=== PATIENT | female | born 1975 | race Caucasian/White ===

== ENCOUNTER 2020-01-23 12:06 | Outpatient (CLI) | payer OTHER, SELFPAY ==
--- NOTE | ~2020-01-23 | MMUS_ITS ---
EXAMINATION: MM diagnostic yissel BI w rohan, US breast RT complete HISTORY: Palpable right breast and axillary lumps. Breast pain. TECHNIQUE: Additional 3-D tomosynthesis images of were performed and synthetic 2-D images were genera jose luis. CAD analysis was submitted and interpreted. High resolution right breast ultrasound was salomee d. COMPARISON: None FINDINGS: MAMMOGRAPHIC FINDINGS: Breast composed of scattered areas of fibroglandular density. There are no suspicious masses, calcifi cations or architectural distortion in either breast to suggest malignancy. ULTRASOUND: Normal heterogeneous echotexture without focal solid or cystic mass. No axillary masses. IMPRESSION: 1. No mammographic or sonographic evidence for malignancy. 2. Routine yearly screening mammogram and regular clinical breast examination are recommended. BI-RADS Category 1: Negative Reviewed, dictated and finalized at location A. /REC/DOC CONTROL IMPRESSION: 1. No mammographic or sonographic evidence for malignancy. 2. Routine yearly screening mammogram and regular clinical breast examination a re recommended. BI-RADS Category 1: Negative
== END 2020-01-23 12:07 | disposition home or self-care (01) ==
PROVIDERS: Visit Provider Emergency Medicine
DX: R92.8 Other abnormal and inconclusive findings on diagnostic imaging of breast (principal)
CPT/HCPCS: 76641; 77062; 77066; G0279

== ENCOUNTER 2020-07-18 22:01 | Emergency (ER) | payer OTHER, SELFPAY ==
--- NOTE | ~2020-07-18 | CT_ITS ---
EXAMINATION: CT brain wo con DATE: 07/18/2020 22:47 INDICATION: Headache TECHNIQUE: Computed tomography (CT) of the head was performed without intravenous contrast. Sagittal and coronal reconstructions were performed. The mA was adjusted according to patient size. Iterative reconstruction technique was employed. The dose-length product was 605.33 mGy-cm. COMPARISON: head CT dated 02/04/19 FINDINGS: No acute intracranial hemorrhage, acute infarction or abnormal extra axial fluid collection. Ventricl es are normal and symmetric. No mass/mass effect. Chronic small right mastoid effusion. The orbits an d left mastoid air cells are normal. Mild mucosal thickening in the bilateral ethmoid sinuses where t here are changes of prior bilateral partial ethmoidectomies. IMPRESSION: 1. Normal brain. No acute intracranial process. Reviewed, dictated and finalized at location A.
[2020-07-18 21:58] VITALS: BP 142/79; PULSE 86; RESP 18; TEMP 36.9; O2SAT 98
--- NOTE | 2020-07-18 22:22 | ECG_ITS ---
Measurements Intervals [place] Rate: 69 P: 59 NV: 139 QRS: 24 QRSD: 82 T: 13 QT: 451 QTc: 483 Interpretive Statements SINUS RHYTHM WITH SINUS ARRHYTHMIA BASELINE ARTIFACT- I, II, III, AVR, AVL, AVF NORMAL ECG Electronically Signed On 07-19-2020 7:02:13 CDT by Haider Jones D.O.
--- NOTE | 2020-07-18 22:23 | ED.GENADULT ---
HPI - General Adult General Chief complaint: Headache Stated complaint: feeling weird Time Seen by Provider: 07/18/20 22:13 Source: RN notes reviewed History of Present Illness HPI narrative: Patient presents emergency department from home via EMS for feeling funny. Patient states that since she woke this morning she is felt funny . She states she is had a hard time focusing. She states she has a history of migraines and has had a headache off and on all day today as well. She notes mild nausea associated with the symptoms. She states she did take Tylenol earlier with no relief. She denies any fevers or chills chest pain shortness of breath vomiting diarrhea or any other symptoms. States that she does have some numbness around her lips but denies any numbness or weakness of the extremities states numbness of the lips is bilateral. States she does have a history of seizures and takes Keppra which she has been taking. Denies any known seizures today Related Data Home Medications Medication Instructions Recorded Confirmed albuterol sulfate [ProAir HFA] 1 inh INHALATION QID PRN 10/24/19 fluoxetine [Prozac] 40 mg PO DAILY 10/24/19 levetiracetam [Keppra] 1,000 mg PO BID 10/24/19 omeprazole 20 mg PO DAILY 10/24/19 fexofenadine-pseudoephedrine 1 tablet PO QAM 07/18/20 [Zenaida-D 24 Hour] Allergies Allergy/AdvReac Type Severity Reaction Status Date / Time latex Allergy Intermediate Hives / Verified 09/30/18 12:18 Red Face aspirin Allergy Unknown Hives Verified 10/24/19 15:56 ibuprofen Allergy Unknown Hives Verified 10/24/19 15:56 iodine Allergy Unknown Hives Verified 10/24/19 15:56 iohexol Allergy Unknown Hives Verified 10/24/19 15:56 [From CONTRAST - CT, XRAY] Penicillins Allergy Unknown Hives Verified 10/24/19 15:56 shellfish derived Allergy Unknown Hives Verified 10/24/19 15:56 Sulfa (Sulfonamide Allergy Unknown Hives Verified 10/24/19 15:56 Antibiotics) ziprasidone Allergy Unknown Hives Verified 10/24/19 15:56 Review of Systems Review of Systems: Narrative: Gen.: Denies fevers or chills Eyes: Denies eye pain or visual change ENT: Denies congestion Respiratory: Denies shortness of breath or cough CV: Denies chest pain or palpitations GI: Denies abdominal pain nausea, emesis or diarrhea Musculoskeletal: Denies back pain or muscle pain Neuro: See HPI Skin: Denies rash Except as documented, all other systems reviewed and negative [facility] Past Medical History Medical History Anemia Asthma Bronchitis Bulging disc DDD (degenerative disc disease) Depression DJD (degenerative joint disease) Endometriosis GERD (gastroesophageal reflux disease) Hiatal hernia History of bipolar disorder IBS (irritable bowel syndrome) Kidney stone Migraines PCOS (polycystic ovarian syndrome) Peripheral neuropathy Pneumonia PTSD (post-traumatic stress disorder) Seizures Spinal fracture Spinal stenosis Ulcer UTI (urinary tract infection) Social History Social History Smoking packs per day: 0.5 Smoking cigarettes per day: 10.0 Smoking status: Current every day smoker Gender identity (if verbalized by the patient): Female Exam Narrative: Exam Narrative: APPEARANCE: No acute distress, nontoxic, resting in bed HEENT: Normocephalic, atraumatic, OMM, TMs clear bilaterally EYES: PERRL, EOMI NECK: Supple, nontender, full range of motion without pain, no meningismus RESPIRATORY: No respiratory distress, clear to auscultation bilaterally with no rhonchi wheezing or rales CARDIOVASCULAR: RRR s murmur ABDOMINAL: Soft, nontender, nondistended MUSCULOSKELETAL: Moves all extremities. No clubbing, cyanosis or edema. NEURO: A and O ?3, following commands, speech normal, cranial nerves II through XII grossly intact,muscle strength 5 out of 5 bilateral upper and lower extremities SKIN:: Warm, dry. Normal Color
[2020-07-18] MEDS: ONDANSETRON INJ 4 MG/2 ML VIAL IV PUSH (22:27)
[2020-07-18] MEDS: SODIUM CHLORIDE 0.9% IV 1,000 ML 999 ML IV CONT (22:27)
[2020-07-18 22:38] LABS: Basophils Percent Auto 0.5 % (0.2-1.2); Eosinophils Absolute Auto 0.3 K/mm3 (0-0.3); Eosinophils Percent Auto 4.5 % (0-4.4); Hematocrit 36.6 % (37.0-47.0); Hemoglobin 12.7 g/dL (12.0-15.0); Immature Granulocyte Absolute 0.01 K/mm3 (0.00-0.031); Immature Granulocyte Percent A 0.1 % (0-0.5); Lymphocytes Absolute Auto 2.75 K/mm3 (0.9-3.2); Lymphocytes Percent Auto 36.2 % (18.3-44.2); Mean Corpuscular HGB Conc 34.7 g/dl (32-36); Mean Corpuscular Hemoglobin 34.5 pg (26-34); Mean Corpuscular Volume 99.5 fl (80-100); Mean Platelet Volume 11.2 fl (7.4-10.4); Monocytes Absolute Auto 0.7 K/mm3 (0.1-0.6); Monocytes Percent Auto 8.7 % (2.6-8.5); Neutrophils Absolute Auto 3.8 K/mm3 (1.3-6.7); Platelet Count Result 242 k/mm3 (150-375); Red Blood Count 3.68 M/mm3 (4.2-5.4); Red Cell Distribution Width 12.7 % (11.5-14.5); White Blood Count 7.6 K/mm3 (4.5-10.0)
[2020-07-18 22:41] LABS: Add Urine Microscopic? NO; Appearance Urine Clear (Clear); Bilirubin Urine Negative (Negative); Blood Urine Negative (Negative); Color Urine Straw (Yellow); Glucose Urine UA Negative (Negative); Ketones Urine Negative (Negative); Leukocyte Esterase Ur Negative LEU/UL (Negative); Nitrate Urine Negative (Negative); Protein Urine Negative (Negative); Specific Grav Ur 1.011 (1.001-1.035); Urobilinogen Urine Negative mg/dL (<2.0)
[2020-07-18 22:50] LABS: Alanine Aminotransferase 25 U/L (4-35); Alkaline Phosphatase 69 U/L (38-126); Anion Gap 7 mmol/L (8-16); Aspartate Amino Transferase 24 U/L (14-36); Bilirubin,Total 0.2 mg/dL (0.2-1.3); Blood Urea Nitrogen 10 mg/dL (7-17); Calcium 8.8 mg/dL (8.4-10.2); Carbon Dioxide 23 mmol/L (22-30); Chloride 107 mmol/L (98-107); Estimated CRCL calculation 116 ml/min; Estimated Glomerular Filt Rate > 60; Glucose 92 mg/dL (65-105); INR 0.9; Potassium 3.5 mmol/L (3.4-5.0); Prothrombin Time 12.2 Seconds (11.1-14.7); Sodium 137 mmol/L (137-145)
[2020-07-18 22:51] LABS: Partial Thromboplastin Time 29.7 SECONDS (22.3-36.8)
[2020-07-18 23:00] VITALS: BP 101/63; PULSE 74; RESP 16; O2SAT 97
[2020-07-19 00:08] VITALS: BP 96/56; PULSE 75; RESP 14; O2SAT 96
[2020-07-19] MEDS: KETOROLAC 30 MG/ML VIAL (*BKC) IV PUSH (00:09)
[2020-07-19] MEDS: diphenhydrAMINE HCl INJ 50 MG/ML VIAL 25 MG IV PUSH (00:09)
[2020-07-19 00:48] VITALS: BP 107/61; PULSE 74
[2020-07-19 00:50] VITALS: BP 117/78; PULSE 85
[2020-07-19 00:55] VITALS: BP 113/73; PULSE 77
[2020-07-19 01:52] VITALS: BP 104/63; PULSE 70; RESP 16; O2SAT 98
== END 2020-07-19 02:00 | disposition home or self-care (01) ==
PROVIDERS: Emergency Provider Emergency Medicine
DX: R51 Headache (principal); F17.200 Nicotine dependence, unspecified, uncomplicated; J45.909 Unspecified asthma, uncomplicated; F32.9 Major depressive disorder, single episode, unspecified; K21.9 Gastro-esophageal reflux disease without esophagitis; E28.2 Polycystic ovarian syndrome; G40.909 Epilepsy, unspecified, not intractable, without status epilepticus
CPT/HCPCS: 36415; 70450; 80053; 81003; 81025; 85025; 85610; 85730; 93005; 96361; 96374; 96375; 99284; J1200; J1885; J2405; J7030

== ENCOUNTER 2021-05-08 20:30 | Emergency (ER) | payer OTHER, SELFPAY ==
--- NOTE | ~2021-05-08 | CT_ITS ---
EXAMINATION: CT brain wo con DATE: 05/08/2021 23:36 INDICATION: Headache and left-sided head pressure TECHNIQUE: Computed tomography (CT) of the head was performed without intravenous contrast. Sagittal and coronal reconstructions were performed. The mA was adjusted according to patient size. Iterative reconstruction technique was employed. The dose-length product was 605.33 mGy-cm. COMPARISON: head CT dated 07/18/2020 FINDINGS: No acute intracranial hemorrhage, acute infarction or abnormal extra axial fluid collection. Ventricl es are normal and symmetric. No mass/mass effect. Minimal right mastoid effusion. Mucosal thickening in the right maxillary and bilateral ethmoid sinuses with change of bilateral partial ethmoidectomies . The orbits are normal. IMPRESSION: 1. Normal brain. No acute intracranial process. Reviewed, dictated and finalized at location A.
[2021-05-08 20:48] VITALS: BP 130/76; PULSE 98; RESP 16; TEMP 36.5; O2SAT 98
[2021-05-08 21:48] VITALS: BP 131/79; PULSE 99; RESP 20; TEMP 36.5; O2SAT 98
[2021-05-08] MEDS: SODIUM CHLORIDE 0.9% IV 1,000 ML 999 ML IV CONT (22:34)
[2021-05-08] MEDS: FAMOTIDINE 20 MG/2 ML VIAL IV PUSH (22:35)
[2021-05-08] MEDS: METOCLOPRAMIDE HCL INJ 10 MG/2 ML VIAL IV PUSH (22:37)
[2021-05-08] MEDS: LORazepam INJ (*CRX) 2 MG/ML VIAL 1 MG IV PUSH (22:43)
[2021-05-08 23:40] VITALS: BP 127/83; PULSE 84; RESP 18; O2SAT 97
--- NOTE | 2021-05-09 | ED.GENADULT ---
HPI - General Adult General Chief complaint: Unspecified <Ervin Reyes PA-C - Last Filed: 05/09/21 00:04> Stated complaint: csf- too much or leaking <DIAZ Anguiano Last Filed: 05/09/21 00:04> Time Seen by Provider: 05/08/21 21:53 <DIAZ Anguiano Last Filed: 05/09/21 00:04> Source: patient and RN notes reviewed <DIAZ Anguiano Last Filed: 05/09/21 00:04> Mode of arrival: ambulatory <DIAZ Anguiano Last Filed: 05/09/21 00:04> Limitations: no limitations <DIAZ Anguiano Last Filed: 05/09/21 00:04> History of Present Illness HPI narrative: Patient is a 45-year-old female who presents to emergency department for evaluation of headache for the last several days patient notes that she thinks she may have a CSF leak although there is no good reason to have 1 patient notes in 2016 she had a leak after lumbar puncture although she has not had any recent lumbar puncture. Patient notes that her ex- recently was released from long-term which is causing her increasing stress. Patient on arrival notes diffuse headache. Patient denies injury or trauma or recent illness. Patient with multiple psych history. Patient presents with normal gait. <DIAZ Anguiano Last Filed: 05/09/21 00:04> Related Data Home medications: Home Medications Medication Instructions Recorded Confirmed albuterol sulfate [ProAir HFA] 1 inh INHALATION QID PRN 10/24/19 fluoxetine [Prozac] 40 mg PO DAILY 10/24/19 levetiracetam [Keppra] 1,000 mg PO BID 10/24/19 omeprazole 20 mg PO DAILY 10/24/19 fexofenadine-pseudoephedrine 1 tablet PO QAM 07/18/20 [Zenaida-D 24 Hour] buspirone mg 05/08/21 fluoxetine mg 05/08/21 hydroxyzine HCl 05/08/21 05/08/21 lamotrigine 05/08/21 <DIAZ Anguiano Last Filed: 05/09/21 00:04> Allergies/adverse reactions: Allergies Allergy/AdvReac Type Severity Reaction Status Date / Time latex Allergy Intermediate Hives / Verified 09/30/18 12:18 Red Face aspirin Allergy Unknown Hives Verified 10/24/19 15:56 ibuprofen Allergy Unknown Hives Verified 10/24/19 15:56 iodine Allergy Unknown Hives Verified 10/24/19 15:56 iohexol Allergy Unknown Hives Verified 10/24/19 15:56 [From CONTRAST - CT, XRAY] Penicillins Allergy Unknown Hives Verified 10/24/19 15:56 shellfish derived Allergy Unknown Hives Verified 10/24/19 15:56 Sulfa (Sulfonamide Allergy Unknown Hives Verified 10/24/19 15:56 Antibiotics) ziprasidone Allergy Unknown Hives Verified 10/24/19 15:56 <Ervin Reyes PA-C - Last Filed: 05/09/21 00:04> Review of Systems Review of Systems: All systems reviewed & are unremarkable except as noted in HPI and below <Ervin Reyes PA-C - Last Filed: 05/09/21 00:04> [facility] Past Medical History Medical History: Medical History (Updated 05/09/21 @ 00:03 by Ervin Reyes PA-C) Anemia Asthma Bronchitis Bulging disc DDD (degenerative disc disease) Depression DJD (degenerative joint disease) Endometriosis GERD (gastroesophageal reflux disease) Hiatal hernia History of bipolar disorder IBS (irritable bowel syndrome) Kidney stone Migraines PCOS (polycystic ovarian syndrome) Peripheral neuropathy Pneumonia PTSD (post-traumatic stress disorder) Seizures Spinal fracture Spinal stenosis Ulcer UTI (urinary tract infection) <Ervin Reyes PA-C - Last Filed: 05/09/21 00:04> Surgical History Surgical History: Surgical History History of back surgery x2 <Ervin Reyes PA-C - Last Filed: 05/09/21 00:04> Social History Social History: Social History Smoking packs per day: 0.5 Smoking cigarettes per day: 10.0 Smoking status: Current every day smoker Gender identity (if verbalized by the patient): Female <Ervin Reyes PA-C - Last [place]
== END 2021-05-09 00:28 | disposition home or self-care (01) ==
PROVIDERS: Emergency Provider General Practice; PCP Emergency Medicine
DX: R51.9 Headache, unspecified (principal); J45.909 Unspecified asthma, uncomplicated; K21.9 Gastro-esophageal reflux disease without esophagitis; F31.9 Bipolar disorder, unspecified; F43.10 Post-traumatic stress disorder, unspecified; K58.9 Irritable bowel syndrome, unspecified; E28.2 Polycystic ovarian syndrome; G62.9 Polyneuropathy, unspecified; Z86.2 Personal history of diseases of the blood and blood-forming organs and certain disorders involving the immune mechanism; Z87.440 Personal history of urinary (tract) infections
CPT/HCPCS: 70450; 96365; 96375; 99284; J0131; J2060; J2765; J7030

== ENCOUNTER 2022-08-04 18:06 | Emergency (ER) | payer OTHER, SELFPAY ==
[2022-08-04] VITALS (20 sets, daily range): BP systolic 101–142; BP diastolic 67–98; PULSE 81–89; RESP 13–21; TEMP 36.9; O2SAT 94–98
--- NOTE | 2022-08-04 | ECG_ITS ---
Measurements Intervals [place] Rate: 84 P: 48 AR: 132 QRS: 7 QRSD: 75 T: 6 QT: 374 QTc: 445 Interpretive Statements SINUS RHYTHM VOLTAGE CRITERIA FOR LVH NONSPECIFIC ST & T-WAVE ABNORMALITY- ANTEROLAT/INF LEADS BORDERLINE ECG COMPARISON TO PRIOR ECG 07-18-20 22:[address] & T-WAVE ABNORMALITY- ANTEROLAT/INF LEADS NOW PRESENT Electronically Signed On 08-05-2022 6:27:40 CDT by Haider Jones D.O.
--- NOTE | ~2022-08-04 | XR_ITS ---
EXAMINATION: XR chest 2V Exam Date/Time: 08/04/2022 18:52 CDT HISTORY: cp, HX HEART ATTACK PER PT, Comparison: 11/22/2019. RESULT: Lines, tubes, and devices: None. Lungs and pleura: Clear. Cardiomediastinal silhouette: Stable. Other: No acute osseous or upper abdominal finding. IMPRESSION: No acute cardiopulmonary process. Reviewed, dictated and finalized at location K.
[2022-08-04 18:35] LABS: Basophils Absolute Auto 0.1 K/mm3 (0.0-0.1); Basophils Percent Auto 0.5 % (0.2-1.2); Eosinophils Absolute Auto 0.4 K/mm3 (0-0.3); Eosinophils Percent Auto 3.3 % (0-4.4); Hematocrit 35.3 % (37.0-47.0); Immature Granulocyte Absolute 0.04 K/mm3 (0.00-0.031); Immature Granulocyte Percent A 0.4 % (0-0.5); Lymphocytes Absolute Auto 1.73 K/mm3 (0.9-3.2); Lymphocytes Percent Auto 16.2 % (18.3-44.2); Mean Corpuscular Hemoglobin 29.9 pg (26-34); Mean Corpuscular Volume 87.8 fl (80-100); Mean Platelet Volume 10.1 fl (7.4-10.4); Monocytes Absolute Auto 0.7 K/mm3 (0.1-0.6); Monocytes Percent Auto 6.4 % (2.6-8.5); Neutrophils Absolute Auto 7.8 K/mm3 (1.3-6.7); Neutrophils Percent Auto 73.2 % (45.5-73.1); Platelet Count Result 216 k/mm3 (150-375); Red Blood Count 4.02 M/mm3 (4.2-5.4); Red Cell Distribution Width 13.7 % (11.5-14.5); White Blood Count 10.7 K/mm3 (4.5-10.0)
[2022-08-04 18:45] LABS: Prothrombin Time 12.6 Seconds (11.1-14.7)
--- NOTE | 2022-08-04 18:45 | ED.CHESTPAIN ---
HPI - Chest Pain General Chief Complaint: Chest Pain Stated Complaint: CHEST PAIN Time Seen by Provider: 08/04/22 18:43 History of Present Illness HPI narrative: 46 years old white female came from home by ambulance because of retrosternal chest squeezing started 2 hours prior to arrival to the emergency room. Patient also complaining of left upper dental pain started 2 years ago, intermittent, usually gets better on clindamycin. Patient reports that her chest pain high likely secondary to the dental pain because she is so stressed and unable to find a dentist to take care of her teeth which she believes that they need to be removed. She denies any fever, chills, nausea, vomiting, headache, difficulty swallowing or breathing. Related Data Home Medications Medication Instructions Recorded Confirmed albuterol sulfate 90 mcg/actuation 1 inh inhalation QID PRN 10/24/19 aerosol inhaler (ProAir HFA) Bronchospasm fluoxetine 40 mg capsule (Prozac) 80 mg PO DAILY 10/24/19 levetiracetam 500 mg tablet 1,000 mg PO BID 10/24/19 (Keppra) omeprazole 20 mg capsule,delayed 20 mg PO DAILY 10/24/19 release fexofenadine-pseudoephedrine ER 1 tablet PO QAM 07/18/20 180 mg-240 mg tablet,ext.release 24 hr (Zenaida-D 24 Hour) buspirone 15 mg tablet mg 05/08/21 fluoxetine 20 mg capsule mg 05/08/21 hydroxyzine HCl 50 mg tablet 100 05/08/21 05/08/21 lamotrigine 25 mg tablet 05/08/21 Allergies Allergy/AdvReac Type Severity Reaction Status Date / Time latex Allergy Intermediate Hives / Verified 08/04/22 18:18 Red Face iodine Allergy Unknown Hives Verified 08/04/22 18:18 iohexol Allergy Unknown Hives Verified 08/04/22 18:18 [From CONTRAST - CT, XRAY] Penicillins Allergy Unknown Hives Verified 08/04/22 18:18 Sulfa (Sulfonamide Allergy Unknown Hives Verified 08/04/22 18:18 Antibiotics) ziprasidone Allergy Unknown Hives Verified 08/04/22 18:18 Review of Systems Review of Systems: All systems reviewed & are unremarkable except as noted in HPI and below PMFSH Past Medical History Medical History (Updated 09/05/22 @ 19:51 by Allison Davis MD) Anemia Asthma Bronchitis Bulging disc DDD (degenerative disc disease) Depression DJD (degenerative joint disease) Endometriosis GERD (gastroesophageal reflux disease) Hiatal hernia History of bipolar disorder IBS (irritable bowel syndrome) Kidney stone Migraines PCOS (polycystic ovarian syndrome) Peripheral neuropathy Pneumonia PTSD (post-traumatic stress disorder) Seizures Spinal fracture Spinal stenosis Ulcer UTI (urinary tract infection) Surgical History Surgical History History of back surgery x2 Social History Social History Smoking packs per day: 0.5 Smoking cigarettes per day: 10.0 Smoking status: Current every day smoker Gender identity (if verbalized by the patient): Female Exam Narrative: General appearance: Well-developed, well-nourished Skin: Normal color Head: Normocephalic, nontraumatic Eyes: Clear conjunctiva ENT: Oropharynx normal, ears normal, nose normal, severe diffuse tenderness of the left upper gum, severe dental decay of the incisor and was done teeth tooth, slight swelling and tenderness of the left cheek externally at the same level of the upper gum, no pain or restriction of the left eye movement Neck: Supple, nontender Chest and respiratory: Airway patent, no respiratory distress, no accessory muscle use Heart: Regular rate/rhythm Abdomen: Soft, nontender, no organomegaly, quiet bowel sounds Vascular: Normal peripheral pulses, normal capillary refill. Musculoskeletal: Normal range of motion, nontender back Neurologic: Alert and oriented ?3, SETUP OPERATOR is normal as tested, no gross motor deficit
[2022-08-04 18:46] LABS: Alanine Aminotransferase 23 U/L (6-35); Albumin Level 3.8 g/dL (3.5-5.1); Alkaline Phosphatase 101 U/L (38-126); Anion Gap 7 mmol/L (8-16); Aspartate Amino Transferase 23 U/L (14-36); Bilirubin,Total 0.3 mg/dL (0.2-1.3); Blood Urea Nitrogen 11 mg/dL (7-17); Calcium 8.3 mg/dL (8.4-10.2); Carbon Dioxide 26 mmol/L (22-30); Chloride 106 mmol/L (98-107); Estimated CRCL calculation 102 ml/min; Estimated Glomerular Filt Rate > 60; Glucose 109 mg/dL (65-110); Lipase 25 U/L (23-300); Potassium 2.9 mmol/L (3.4-5.0); Sodium 139 mmol/L (137-145)
[2022-08-04 18:57] LABS: Troponin I < 0.012 ng/mL (0.000-0.034)
[2022-08-04] MEDS: KETOROLAC 30 MG/ML VIAL (*BKC) IV PUSH (19:32)
[2022-08-04] MEDS: hydrOXYzine HCL 25 MG TABLET 50 MG PO (19:33)
[2022-08-04] MEDS: CLINDAMYCIN HCL 150 MG CAP 450 MG PO (20:02)
[2022-08-04] MEDS: POTASSIUM CHLORIDE 20 MEQ TABLET 40 MEQ PO (20:02)
== END 2022-08-04 20:43 | disposition home or self-care (01) ==
PROVIDERS: Emergency Provider Emergency Medicine; PCP Emergency Medicine
DX: K04.7 Periapical abscess without sinus (principal); J45.909 Unspecified asthma, uncomplicated; D64.9 Anemia, unspecified; E28.2 Polycystic ovarian syndrome; N80.9 Endometriosis, unspecified; G62.9 Polyneuropathy, unspecified; K58.9 Irritable bowel syndrome, unspecified; K21.9 Gastro-esophageal reflux disease without esophagitis; F43.10 Post-traumatic stress disorder, unspecified; F32.A Depression, unspecified; Z87.440 Personal history of urinary (tract) infections; Z87.442 Personal history of urinary calculi; F17.210 Nicotine dependence, cigarettes, uncomplicated; R94.31 Abnormal electrocardiogram [ECG] [EKG]
CPT/HCPCS: 36415; 71046; 80053; 83690; 84484; 85025; 85610; 85730; 93005; 96374; 96375; 99284; A9270; J1100; J1885

== ENCOUNTER 2022-09-30 13:40 | Emergency (ER) | payer OTHER, SELFPAY ==
[2022-09-30] VITALS (28 sets, daily range): BP systolic 103–144; BP diastolic 53–99; PULSE 75–91; RESP 11–21; TEMP 36.7; O2SAT 92–100
--- NOTE | ~2022-09-30 | CT_ITS ---
EXAMINATION: CT abdomen pelvis wo con DATE: 09/30/2022 15:28 INDICATION: Abdominal and rectal pain. Constipation for one week. TECHNIQUE: Computed tomography (CT) of the abdomen and pelvis was performed without intravenous contr ast. Automated exposure control and iterative reconstruction technique were employed. Exam dose: 890 .81 mGy-cm total exam DLP. COMPARISON: 10/16/2019 pelvic ultrasound 10/16/2019 CT abdomen pelvis FINDINGS: There is a small calcified pulmonary granuloma in the posterior left lung base, left lower lobe. The lung bases are clear of infiltrate or consolidation. Normal heart size. No pericardial or p leural effusion. The liver, gallbladder, bile ducts, spleen, pancreas and pancreatic duct are unremarkable. Normal morphology of the adrenal glands. No renal mass lesion or urinary tract calculus or hydroureteronephrosis is evident. There is a Mascorro catheter in the completely evacuated urinary bladder. The uterus and adnexal areas a re unremarkable. Normal appendix. There is a prominent stool ball in the rectosigmoid area measuring up to approximately 7 cm x 7 cm di mension. No bowel obstruction, bowel wall thickening, pneumatosis or intraperitoneal free air. Normal caliber of the abdominal aorta. No intraperitoneal or retroperitoneal or pelvic mass lesion or adenopathy or ascites. Small fat-containing umbilical hernia. IMPRESSION: Large amount fecal material in the rectosigmoid area Reviewed, dictated and finalized at Location A. Reviewed, dictated and finalized at location A.
[2022-09-30 14:18] LABS: Basophils Absolute Auto 0.1 K/mm3 (0.0-0.1); Basophils Percent Auto 0.7 % (0.2-1.2); Eosinophils Absolute Auto 0.3 K/mm3 (0-0.3); Eosinophils Percent Auto 3.3 % (0-4.4); Hematocrit 36.4 % (37.0-47.0); Hemoglobin 12.5 g/dL (12.0-15.0); Immature Granulocyte Absolute 0.09 K/mm3 (0.00-0.031); Lymphocytes Absolute Auto 2.17 K/mm3 (0.9-3.2); Lymphocytes Percent Auto 23.5 % (18.3-44.2); Mean Corpuscular HGB Conc 34.3 g/dl (32-36); Mean Corpuscular Hemoglobin 30.7 pg (26-34); Mean Corpuscular Volume 89.4 fl (80-100); Mean Platelet Volume 10.2 fl (7.4-10.4); Monocytes Absolute Auto 0.5 K/mm3 (0.1-0.6); Monocytes Percent Auto 5.4 % (2.6-8.5); Neutrophils Absolute Auto 6.1 K/mm3 (1.3-6.7); Neutrophils Percent Auto 66.1 % (45.5-73.1); Platelet Count Result 292 k/mm3 (150-375); Red Blood Count 4.07 M/mm3 (4.2-5.4); White Blood Count 9.2 K/mm3 (4.5-10.0)
[2022-09-30 14:27] LABS: Alanine Aminotransferase 32 U/L (6-35); Albumin Level 4.2 g/dL (3.5-5.1); Alkaline Phosphatase 133 U/L (38-126); Anion Gap 12 mmol/L (8-16); Aspartate Amino Transferase 28 U/L (14-36); Bilirubin,Total 0.5 mg/dL (0.2-1.3); Blood Urea Nitrogen 7 mg/dL (7-17); Calcium 8.6 mg/dL (8.4-10.2); Carbon Dioxide 18 mmol/L (22-30); Chloride 107 mmol/L (98-107); Estimated CRCL calculation 106 ml/min; Estimated Glomerular Filt Rate > 60; Glucose 150 mg/dL (65-110); Lipase 26 U/L (23-300); Potassium 3.8 mmol/L (3.4-5.0); Sodium 137 mmol/L (137-145)
[2022-09-30] MEDS: SODIUM CHLORIDE 0.9% IV 1,000 ML 999 ML IV CONT ×2 (14:35→17:44)
[2022-09-30] MEDS: MORPHINE SULFATE (*CRX) 4 MG/ML INJ IV PUSH ×2 (14:35→17:44)
[2022-09-30] MEDS: ONDANSETRON INJ 4 MG/2 ML VIAL IV PUSH ×2 (14:36→17:44)
--- NOTE | 2022-09-30 14:50 | ED.ABDPAIN ---
HPI - Abdominal Pain General Chief Complaint: Abdominal Pain <DIAZ Reyes Last Filed: 09/30/22 19:11> Stated Complaint: constipated x 1 week <DIAZ Reyes Last Filed: 09/30/22 19:11> Time Seen by Provider: 09/30/22 13:59 <DIAZ Reyes Last Filed: 09/30/22 19:11> Source: patient <DIAZ Reyes Last Filed: 09/30/22 19:11> Mode of arrival: ambulatory <DIAZ Reyes Last Filed: 09/30/22 19:11> Limitations: no limitations <DIAZ Reyes Last Filed: 09/30/22 19:11> History of Present Illness HPI narrative: Patient is a 46-year-old female who presents the ED with report of constipation. Patient reports she has been dealing with constipation issues for the last 2 months. She last had a bowel movement 1 week ago. She has been trying several different remedies at home, including home enemas, MiraLAX, stool softeners, prunes. Patient complains of nausea, abdominal pain and bloating, rectal pain, and difficulty urinating. Denies fever. She has not taken anything for pain. <DIAZ Reyes Last Filed: 09/30/22 19:11> Related Data Allergies/Adverse Reactions: Allergies Allergy/AdvReac Type Severity Reaction Status Date / Time iohexol Allergy Unknown Verified 09/30/22 13:51 [From contrast - CT, X-RAY] latex Allergy Unknown Verified 09/30/22 13:51 Penicillins Allergy Unknown Verified 09/30/22 13:51 <DIAZ Reyes Last Filed: 09/30/22 19:11> Review of Systems Review of Systems: CONSTITUTIONAL: Denies fever, chills, or sweats. CARDIOVASCULAR: Denies chest pain. RESPIRATORY: Denies dyspnea. GASTROINTESTINAL: Reports diffuse abdominal pain, abdominal bloating, rectal pain, nausea, constipation. Denies vomiting or diarrhea. GENITOURINARY: Reports difficulty urinating. Denies dysuria or hematuria. <Socorro Maria PA-C - Last Filed: 09/30/22 19:11> All systems reviewed & are unremarkable except as noted in HPI and below <Socorro Maria PA-C - Last Filed: 09/30/22 19:11> [facility] Past Medical History Medical History: Medical History (Updated 09/30/22 @ 18:59 by Socorro Maria PA-C) Anxiety Depression GERD (gastroesophageal reflux disease) HLD (hyperlipidemia) Spinal stenosis <Socorro Maria PA-C - Last Filed: 09/30/22 19:11> Surgical History Surgical History: Surgical History (Updated 09/30/22 @ 17:35 by Socorro Maria PA-C) No pertinent past surgical history <Socorro Maria PA-C - Last Filed: 09/30/22 19:11> Social History Social History: Social History (Updated 09/30/22 @ 17:35 by Socorro Maria PA-C) Smoking status: Never smoker <Socorro Maria PA-C - Last Filed: 09/30/22 19:11> Exam Narrative: GENERAL: Well appearing, morbidly obese, non-toxic, in moderate acute distress. Unable to get comfortable on ED stretcher. HEAD: Normocephalic, atraumatic. NECK: Supple. No adenopathy, no masses. RESPIRATORY: Airway patent, respirations nonlabored. Clear to auscultation bilaterally, no rales, rhonchi, wheezing. CARDIOVASCULAR: Regular rate and rhythm without murmurs, rubs, or gallops. Peripheral pulses 2+ and equal bilaterally. ABDOMINAL: Soft, but mildly bloated/distended. Diffuse tenderness to palpation. Normoactive BS. MUSCULOSKELETAL: Moves all extremities. Strength/ROM intact without gross deformities. SKIN: Warm, dry, normal color. No rashes. NEURO: A&O X3. Speech clear. Cranial nerves II-XII grossly intact. Steady gait. No ataxic movements. PSYCHIATRIC: Appropriate mood and affect. Normal interaction. <Socorro Maria PA-C - Last Filed: 09/30/22 19:11> Course GIS CONSULTANT/PA Physician Supervision For this patient encounter, I reviewed the GIS CONSULTANT or PA documentation, treatment plan, and medical decision making; and I had [id number] time with this patient. <Ed Toro MD
[2022-09-30 15:14] LABS: Appearance Urine Clear (Clear); Bilirubin Urine Negative (Negative); Blood Urine Negative (Negative); Color Urine Yellow (Yellow); Glucose Urine UA Negative (Negative); Ketones Urine Trace mg/dL (Negative); Leukocyte Esterase Ur Negative LEU/UL (Negative); Nitrate Urine Negative (Negative); Protein Urine Negative (Negative); Specific Grav Ur 1.015 (1.001-1.035); Urobilinogen Urine 0.2 mg/dL (<2.0); pH Urine 7.5 (5.0-9.0)
[2022-09-30 15:18] LABS: Bacteria Urine Trace /hpf; Squamous Epithelial Cell Urine Rare /hpf (Few); WBC Urine 0-3 /hpf
[2022-09-30 15:20] LABS: Add Urine Microscopic? YES
--- NOTE | 2022-09-30 17:15 | PC.NURSE ---
Pt. had a successful bowel movement about enema. ERP aware.
--- NOTE | 2022-09-30 18:36 | PC.NURSE ---
ERP via verbal order readback, remove indwelling catheter.
[2022-09-30] MEDS: ACETAMINOPHEN 500 MG TABLET 1000 MG PO (19:15)
== END 2022-09-30 19:23 | disposition home or self-care (01) ==
PROVIDERS: Physician Assistant; Emergency Provider Emergency Medicine; PCP Emergency Medicine
DX: K59.00 Constipation, unspecified (principal); K21.9 Gastro-esophageal reflux disease without esophagitis; E78.5 Hyperlipidemia, unspecified
CPT/HCPCS: 36415; 51702; 74176; 80053; 81001; 81025; 83690; 85025; 96361; 96374; 96375; 96376; 99284; A9270; J2270; J2405; J7030

== ENCOUNTER 2023-01-14 14:10 | Emergency (ER) | payer OTHER, SELFPAY ==
--- NOTE | ~2023-01-14 | CT_ITS ---
EXAMINATION: CT soft tissue neck wo con DATE: 01/14/2023 17:06 INDICATION: Sore throat. Dysphagia. TECHNIQUE: Computed tomography (CT) of the neck was performed without intravenous contrast. Automated exposure control and iterative reconstruction technique were employed. The dose-length product was 5 88.53 mGy-cm. COMPARISON: None FINDINGS: The pharynx and larynx are normal. There are no pathologically enlarged lymph nodes. There is mild mucosal thickening in the paranasal sinuses. There is extensive dental disease. There is mild cervical spondylosis. IMPRESSION: 1. Extensive dental disease. Reviewed, dictated and finalized at location A. [employer]
[2023-01-14 14:27] VITALS: BP 128/83; PULSE 86; RESP 14; TEMP 36.4; O2SAT 94
[2023-01-14 16:44] LABS: Influenza A QL RT-PCR Negative (Negative); Influenza B QL RT-PCR Negative (Negative); RSV RNA, RT-PCR Negative (Negative); SARS-CoV-2 RNA PCR Negative
--- NOTE | 2023-01-14 16:50 | ED.GENADULT ---
HPI - General Adult General Chief complaint: Headache Stated complaint: headache, jaw pain Time Seen by Provider: 01/14/23 14:44 History of Present Illness HPI narrative: 47-year-old female presented to the emergency department for evaluation of headache, throat pain and dental pain. Patient states that she has been having anterior throat pain and difficulty breathing and swallowing that has been worsening over the last few weeks. Patient states when she bends forward she feels she cannot breathe due to the throat swelling. Patient also reports having sinus congestion and headache. Related Data Home Medications Medication Instructions Recorded Confirmed albuterol sulfate 90 mcg/actuation 1 inh inhalation QID PRN 10/24/19 aerosol inhaler (ProAir HFA) Bronchospasm fluoxetine 40 mg capsule (Prozac) 80 mg PO DAILY 10/24/19 levetiracetam 500 mg tablet 1,000 mg PO BID 10/24/19 (Keppra) omeprazole 20 mg capsule,delayed 20 mg PO DAILY 10/24/19 release fexofenadine-pseudoephedrine ER 1 tablet PO QAM 07/18/20 180 mg-240 mg tablet,ext.release 24 hr (Zenaida-D 24 Hour) buspirone 15 mg tablet mg 05/08/21 fluoxetine 20 mg capsule mg 05/08/21 hydroxyzine HCl 50 mg tablet 100 05/08/21 05/08/21 lamotrigine 25 mg tablet 05/08/21 Allergies Allergy/AdvReac Type Severity Reaction Status Date / Time iodine Allergy Unknown Hives Verified 10/06/22 11:29 Sulfa (Sulfonamide Allergy Unknown Hives Verified 10/06/22 11:29 Antibiotics) ziprasidone Allergy Unknown Hives Verified 10/06/22 11:29 iohexol Allergy Unknown Verified 10/06/22 11:29 [From contrast - CT, X-RAY] latex Allergy Unknown Verified 10/06/22 11:29 Penicillins Allergy Unknown Verified 10/06/22 11:29 Review of Systems Review of Systems: CONSTITUTIONAL: Denies fever, chills, or sweats. EYES: Denies visual changes, redness, or discharge. ENT: See HPI CARDIOVASCULAR: Denies chest pain, palpitations, or edema. RESPIRATORY: Denies cough or dyspnea. GASTROINTESTINAL: Denies abdominal pain, nausea, vomiting, or diarrhea. GENITOURINARY: Denies dysuria or hematuria. SKIN: Denies rash or itching. MUSCULOSKELETAL: Denies back pain, joint pain, or myalgia. NEUROLOGIC: Denies headache, numbness, or weakness. [facility] Past Medical History Medical History (Updated 01/14/23 @ 18:33 by Ed Toro MD) Anemia Anxiety Asthma Bronchitis Bulging disc DDD (degenerative disc disease) Depression Depression DJD (degenerative joint disease) Endometriosis GERD (gastroesophageal reflux disease) GERD (gastroesophageal reflux disease) Hiatal hernia History of bipolar disorder HLD (hyperlipidemia) IBS (irritable bowel syndrome) Kidney stone Migraines PCOS (polycystic ovarian syndrome) Peripheral neuropathy Pneumonia PTSD (post-traumatic stress disorder) Seizures Spinal fracture Spinal stenosis Spinal stenosis Ulcer UTI (urinary tract infection) Surgical History Surgical History (Updated 10/06/22 @ 11:29 by Mona White) History of back surgery x2 No pertinent past surgical history Social History Social History (System 10/06/22 @ 11:29 by Mona White) Smoking packs per day: 0.5 Smoking cigarettes per day: 10.0 Smoking status: Current every day smoker Gender identity (if verbalized by the patient): Female Exam Narrative: APPEARANCE: Well appearing, no pain, no distress, well-nourished. HEAD: normocephalic, atraumatic. EYES: PERRLA/EOMI, conjunctivae clear. NOSE: Normal no drainage EARS:TMS clear with good light reflex. THROAT: Pharynx clear, no exudate. Normal posterior pharynx normal tonsils. NECK: Supple. No adenopathy, no masses. No appreciable swelling RESPIRATORY: Airway patent, respirations nonlabored. Clear to auscultation bilaterally, no rales, rhonchi, wheezing. CARDIOVASCULAR: Regular rate and rhythm without murmurs rubs or gallops. ABDOMINAL: Soft, nontender, nondistended, normal bowel sounds MUSCULOSKELETAL: Move
[2023-01-14] MEDS: ONDANSETRON INJ 4 MG/2 ML VIAL IV PUSH (17:00)
[2023-01-14] MEDS: SODIUM CHLORIDE 0.9% IV 1,000 ML 999 ML IV CONT (17:01)
[2023-01-14 17:06] LABS: Basophils Absolute Auto 0.1 K/mm3 (0.0-0.1); Basophils Percent Auto 0.7 % (0.2-1.2); Eosinophils Absolute Auto 0.5 K/mm3 (0-0.3); Eosinophils Percent Auto 7.3 % (0-4.4); Hematocrit 35.8 % (37.0-47.0); Hemoglobin 12.1 g/dL (12.0-15.0); Immature Granulocyte Absolute 0.02 K/mm3 (0.00-0.031); Immature Granulocyte Percent A 0.3 % (0-0.5); Lymphocytes Absolute Auto 2.61 K/mm3 (0.9-3.2); Lymphocytes Percent Auto 36.8 % (18.3-44.2); Mean Corpuscular HGB Conc 33.8 g/dl (32-36); Mean Corpuscular Hemoglobin 32.8 pg (26-34); Mean Platelet Volume 10.2 fl (7.4-10.4); Monocytes Absolute Auto 0.5 K/mm3 (0.1-0.6); Monocytes Percent Auto 6.9 % (2.6-8.5); Neutrophils Absolute Auto 3.4 K/mm3 (1.3-6.7); Platelet Count Result 313 k/mm3 (150-375); Red Blood Count 3.69 M/mm3 (4.2-5.4); Red Cell Distribution Width 13.9 % (11.5-14.5); White Blood Count 7.1 K/mm3 (4.5-10.0)
[2023-01-14 17:17] LABS: Alanine Aminotransferase 22 U/L (6-35); Alkaline Phosphatase 85 U/L (38-126); Anion Gap 6 mmol/L (8-16); Aspartate Amino Transferase 31 U/L (14-36); Bilirubin,Total 0.3 mg/dL (0.2-1.3); Blood Urea Nitrogen 11 mg/dL (7-17); Calcium 8.3 mg/dL (8.4-10.2); Carbon Dioxide 26 mmol/L (22-30); Chloride 108 mmol/L (98-107); Estimated CRCL calculation 104 ml/min; Estimated Glomerular Filt Rate > 60; Glucose 102 mg/dL (65-110); Potassium 3.9 mmol/L (3.4-5.0); Sodium 140 mmol/L (137-145)
[2023-01-14 18:21] LABS: Strep Group A RT-PCR NOT DETECTED (Negative)
[2023-01-14] MEDS: CLINDAMYCIN HCL 150 MG CAP PO (18:55)
[2023-01-14 19:05] VITALS: BP 142/78; PULSE 82; RESP 16; O2SAT 98
== END 2023-01-14 19:06 | disposition home or self-care (01) ==
PROVIDERS: Emergency Provider Emergency Medicine; PCP Emergency Medicine
DX: K08.89 Other specified disorders of teeth and supporting structures (principal); J02.9 Acute pharyngitis, unspecified; Z20.822 Contact with and (suspected) exposure to COVID-19; D64.9 Anemia, unspecified; F41.9 Anxiety disorder, unspecified; J45.909 Unspecified asthma, uncomplicated; F32.9 Major depressive disorder, single episode, unspecified; K21.9 Gastro-esophageal reflux disease without esophagitis; G40.909 Epilepsy, unspecified, not intractable, without status epilepticus; Z87.440 Personal history of urinary (tract) infections
CPT/HCPCS: 36415; 70490; 80053; 85025; 87637; 87651; 96361; 96374; 99284; A9270; J2405; J7030

== ENCOUNTER 2023-06-16 01:13 | Emergency (ER) | payer OTHER, SELFPAY ==
--- NOTE | ~2023-06-16 | XR_ITS ---
Clinical Indication: Chest pain PA and lateral views of the chest: Comparison: 08/04/2022 Findings: The lungs are clear, without evidence of focal consolidation or pleural effusion. Cardiome diastinal silhouette is within normal limits. Bones and soft tissues are unremarkable. Impression: Normal chest. Reviewed, dictated and finalized at location . Impression: Normal chest.
--- NOTE | 2023-06-16 01:16 | ECG_ITS ---
Measurements Intervals [place] Rate: 96 P: 43 WI: 145 QRS: 18 QRSD: 75 T: 37 QT: 378 QTc: 479 Interpretive Statements SINUS RHYTHM VOLTAGE CRITERIA FOR LVH BORDERLINE T WAVE ABNORMALITY- ANTERIOR LEADS BASELINE ARTIFACT- I, II, AVR, AVL, AVF BORDERLINE ECG NO PREVIOUS ECG AVAILABLE FOR COMPARISON Electronically Signed On 06-16-2023 6:51:14 CDT by Haider Jones D.O.
[2023-06-16 01:19] VITALS: BP 138/83; PULSE 97; RESP 12; TEMP 36.7; O2SAT 97
[2023-06-16 01:26] VITALS: PULSE 92
[2023-06-16 01:29] LABS: Basophils Absolute Auto 0.1 K/mm3 (0.0-0.1); Basophils Percent Auto 0.7 % (0.2-1.2); Eosinophils Absolute Auto 0.5 K/mm3 (0-0.3); Hematocrit 35.6 % (37.0-47.0); Hemoglobin 11.9 g/dL (12.0-15.0); Immature Granulocyte Absolute 0.03 K/mm3 (0.00-0.031); Immature Granulocyte Percent A 0.3 % (0-0.5); Lymphocytes Absolute Auto 2.73 K/mm3 (0.9-3.2); Lymphocytes Percent Auto 27.7 % (18.3-44.2); Mean Corpuscular HGB Conc 33.4 g/dl (32-36); Mean Corpuscular Hemoglobin 32.4 pg (26-34); Mean Platelet Volume 10.4 fl (7.4-10.4); Monocytes Absolute Auto 0.7 K/mm3 (0.1-0.6); Monocytes Percent Auto 7.2 % (2.6-8.5); Neutrophils Absolute Auto 5.8 K/mm3 (1.3-6.7); Neutrophils Percent Auto 59.1 % (45.5-73.1); Platelet Count Result 288 k/mm3 (150-375); Red Blood Count 3.67 M/mm3 (4.2-5.4); Red Cell Distribution Width 14.6 % (11.5-14.5); White Blood Count 9.9 K/mm3 (4.5-10.0)
[2023-06-16 01:39] LABS: Alanine Aminotransferase 69 U/L (6-35); Alkaline Phosphatase 124 U/L (38-126); Anion Gap 6 mmol/L (8-16); Aspartate Amino Transferase 39 U/L (14-36); Bilirubin,Total 0.3 mg/dL (0.2-1.3); Blood Urea Nitrogen 10 mg/dL (7-17); Calcium 8.6 mg/dL (8.4-10.2); Carbon Dioxide 25 mmol/L (22-30); Chloride 107 mmol/L (98-107); Estimated CRCL calculation 115 ml/min; Estimated Glomerular Filt Rate > 60; Glucose 129 mg/dL (65-110); Lipase 74 U/L (23-300); Potassium 3.3 mmol/L (3.4-5.0); Sodium 138 mmol/L (137-145)
[2023-06-16 01:40] LABS: INR 0.9; Prothrombin Time 12.3 Seconds (11.1-14.7)
[2023-06-16 01:51] LABS: Troponin I < 0.012 ng/mL (0.000-0.034)
[2023-06-16] MEDS: ACETAMINOPHEN 500 MG TABLET 1000 MG PO (02:03)
[2023-06-16] MEDS: ONDANSETRON INJ 4 MG/2 ML VIAL IV PUSH (02:05)
[2023-06-16] MEDS: MORPHINE SULFATE (*CRX) 2 MG/ML INJ IV PUSH (02:05)
[2023-06-16 02:07] VITALS: BP 142/88; PULSE 95; RESP 12; O2SAT 94
--- NOTE | 2023-06-16 02:12 | ED.CHESTPAIN ---
HPI - Chest Pain General Chief Complaint: Chest Pain Stated Complaint: cp Time Seen by Provider: 06/16/23 01:21 History of Present Illness HPI narrative: This is a 47-year-old female, who presents to the emergency department complaining of headache, dental pain and chest pain for the past 3 days. The patient states initially her pain began with dental pain, associated with swelling and multiple broken teeth. She then developed a throbbing global headache rated 7/10 not associated with any weakness or numbness. She then developed intermittent left-sided sharp chest pain lasting between 45 seconds to 2 minutes without aggravating or alleviating factors. The pain occasionally radiates to the left arm. She complains of general nausea but denies worsening nausea with episodes of chest pain. EMS reports the patient's vital signs were within normal limits. She was given sublingual nitro with improvement of her chest pain. Related Data Home Medications Medication Instructions Recorded Confirmed albuterol sulfate 90 mcg/actuation 1 inh inhalation QID PRN 10/24/19 aerosol inhaler (ProAir HFA) Bronchospasm fluoxetine 40 mg capsule (Prozac) 80 mg PO DAILY 10/24/19 levetiracetam 500 mg tablet 1,000 mg PO BID 10/24/19 (Keppra) omeprazole 20 mg capsule,delayed 20 mg PO DAILY 10/24/19 release fexofenadine-pseudoephedrine ER 1 tablet PO QAM 07/18/20 180 mg-240 mg tablet,ext.release 24 hr (Zenaida-D 24 Hour) buspirone 15 mg tablet mg 05/08/21 fluoxetine 20 mg capsule mg 05/08/21 hydroxyzine HCl 50 mg tablet 100 05/08/21 05/08/21 lamotrigine 25 mg tablet 05/08/21 Allergies Allergy/AdvReac Type Severity Reaction Status Date / Time iodine Allergy Unknown Hives Verified 06/16/23 01:23 Sulfa (Sulfonamide Allergy Unknown Hives Verified 06/16/23 01:23 Antibiotics) ziprasidone Allergy Unknown Hives Verified 06/16/23 01:23 iohexol Allergy Dyspnea / Verified 06/16/23 01:23 [From contrast - CT, X-RAY] SOB latex Allergy Unknown Verified 06/16/23 01:23 Penicillins Allergy Unknown Verified 06/16/23 01:23 Review of Systems Review of Systems: CONSTITUTIONAL: Denies fever, chills, or sweats. ENT: Dental pain, Denies otalgia, rhinorrhea, congestion, hearing loss or sore throa CARDIOVASCULAR: Chest pain Denies palpitations, or edema. RESPIRATORY: Denies cough or dyspnea. GASTROINTESTINAL: Denies abdominal pain, nausea, vomiting, or diarrhea. GENITOURINARY: Denies dysuria or hematuria. SKIN: Denies rash or itching. MUSCULOSKELETAL: Denies back pain, joint pain, or myalgia. NEUROLOGIC: Headache Denies numbness, dizziness, or weakness. PSYCHIATRIC: Denies anxiety or depression. [facility] Past Medical History Medical History Anemia Anxiety Asthma Bronchitis Bulging disc DDD (degenerative disc disease) Depression Depression DJD (degenerative joint disease) Endometriosis GERD (gastroesophageal reflux disease) GERD (gastroesophageal reflux disease) Hiatal hernia History of bipolar disorder HLD (hyperlipidemia) IBS (irritable bowel syndrome) Kidney stone Migraines PCOS (polycystic ovarian syndrome) Peripheral neuropathy Pneumonia PTSD (post-traumatic stress disorder) Seizures Spinal fracture Spinal stenosis Spinal stenosis Ulcer UTI (urinary tract infection) Surgical History Surgical History History of back surgery x2 No pertinent past surgical history Social History Social History Smoking packs per day: 0.5 Smoking cigarettes per day: 10.0 Smoking status: Current every day smoker Gender identity (if verbalized by the patient): Female Course Course Emergency Course: 02:47 - Initial troponin negative. Heart score 2. My suspicion for ACS is decreased at this time. Well's score 0. The patient PERCs out. Chemistries demonstrate
[2023-06-16 03:00] VITALS: BP 127/79; PULSE 81; RESP 12; O2SAT 98
[2023-06-16] MEDS: BELLADONNA ALK/PHENOB ELIX 10 ML, MAG HYDROX/ALUMINUM HYD/SIMETH 30 ML, LIDOCAINE HCL 2... PO (03:07)
[2023-06-16] MEDS: diphenhydrAMINE HCl INJ 50 MG/ML VIAL 25 MG IV PUSH (03:08)
[2023-06-16] MEDS: PROCHLORPERAZINE EDISYLATE 10 MG/2 ML VIAL IV PUSH (03:09)
[2023-06-16] MEDS: SODIUM CHLORIDE 0.9% IV 1,000 ML 999 ML IV CONT (03:09)
[2023-06-16 04:00] VITALS: BP 135/90; PULSE 93; RESP 13; O2SAT 95
[2023-06-16] MEDS: KETOROLAC 30 MG/ML VIAL (*BKC) IV PUSH (04:33)
[2023-06-16 05:04] LABS: Troponin I 0.021 ng/mL (0.000-0.034)
[2023-06-16 06:00] VITALS: BP 143/92; PULSE 92; RESP 12; O2SAT 94
== END 2023-06-16 06:45 | disposition home or self-care (01) ==
PROVIDERS: Emergency Provider Preventive Medicine Aerospace Medicine; PCP Emergency Medicine
DX: R07.89 Other chest pain (principal); R51.9 Headache, unspecified; K04.7 Periapical abscess without sinus; J45.909 Unspecified asthma, uncomplicated; D64.9 Anemia, unspecified; E78.5 Hyperlipidemia, unspecified; N80.9 Endometriosis, unspecified; K58.9 Irritable bowel syndrome, unspecified; E28.2 Polycystic ovarian syndrome; G62.9 Polyneuropathy, unspecified; F41.9 Anxiety disorder, unspecified; F43.10 Post-traumatic stress disorder, unspecified; F31.9 Bipolar disorder, unspecified; F17.210 Nicotine dependence, cigarettes, uncomplicated; Z87.442 Personal history of urinary calculi; Z87.01 Personal history of pneumonia (recurrent); Z87.440 Personal history of urinary (tract) infections; R94.31 Abnormal electrocardiogram [ECG] [EKG]
CPT/HCPCS: 36415; 71046; 80053; 81025; 83690; 84484; 85025; 85610; 85730; 93005; 96361; 96374; 96375; 99284; A9270; J0780; J1200; J1885; J2270; J2405; J7030

== ENCOUNTER 2024-02-16 17:08 | Observation (INO) | payer OTHER, SELFPAY ==
[2024-02-16] VITALS (8 sets, daily range): BP systolic 103–139; BP diastolic 60–90; PULSE 72–95; RESP 14–18; TEMP 36.4; O2SAT 96–100
--- NOTE | ~2024-02-16 | MR_ITS ---
MRI of the brain Clinical History: Dizziness Technique: Axial and sagittal T1-weighted images were acquired. These were followed by axial T2-weigh jose luis, diffusion weighted, gradient, and FLAIR images. Following intravenous administration of 20 cc Mu ltiHance gadolinium, T1-weighted fat-sat imaging was performed in the axial and coronal planes. Findings: No abnormal signal seen in the brain parenchyma. No acute infarct, intracranial hemorrhage, or mass lesion. Ventricles and subarachnoid spaces are unremarkable. Orbits are unremarkable. There is left maxillary , left frontal, left ethmoid sinus disease. Remaining paranasal sinuses and mastoid air cells are ess entially clear. Major intracranial flow voids are grossly intact. Sagittal midline structures are intact. No abnormal postcontrast enhancement identified. IMPRESSION: No intracranial abnormality. Left-sided sinus disease, as above. Reviewed, dictated and finalized at [facility].
--- NOTE | ~2024-02-16 | CT_ITS ---
EXAMINATION: CT brain wo con DATE: 02/16/2024 20:17 INDICATION: Dizziness . TECHNIQUE: Computed tomography (CT) of the head was performed without intravenous contrast. The mA wa s adjusted according to patient size. Iterative reconstruction technique was employed. The dose-lengt h product was 529.67 mGy-cm. COMPARISON: None. FINDINGS: No acute intracranial hemorrhage or extra-axial fluid collection. No hydrocephalus, mass, or herniation. No acute ischemic infarct. Unremarkable dural venous sinus attenuation. No acute osseous abnormality. Left maxillary ethmoid and frontal sinus mucosal thickening, the remaining aerated spaces are clear. IMPRESSION: No acute intracranial process. Reviewed, dictated and finalized at location K.
--- NOTE | ~2024-02-16 | XR_ITS ---
EXAMINATION: XR chest 1V Exam Date/Time: 02/16/2024 20:10 CDT HISTORY: Cough WITH SHORTNESS OF BREATH X 2-3 DAYS Comparison: 06/16/2023. RESULT: Lines, tubes, and devices: None. Lungs and pleura: Clear. Cardiomediastinal silhouette: Stable. Other: No acute osseous or upper abdominal finding. IMPRESSION: No acute cardiopulmonary process. Reviewed, dictated and finalized at location K.
--- NOTE | ~2024-02-16 | CT_ITS ---
EXAMINATION: CT cervical spine wo con DATE: 02/16/2024 20:17 INDICATION: neck pain TECHNIQUE: Computed tomography (CT) of the cervical spine was performed without intravenous contrast. Automated exposure control and iterative reconstruction technique were employed. The dose-length pro duct was 445.00 mGy-cm. COMPARISON: CT soft tissue neck 01/14/2023. FINDINGS: Vertebral Body Alignment: Intact. Craniocervical and atlantoaxial alignment: Moderate degenerative change. Alignment intact. Osseous structures/fracture: No evidence of a lytic or blastic process in the visualized spine. No e vidence of acute fracture. Cervical soft tissues: The paraspinal soft tissues planes are maintained. Degenerative changes: No significant degenerative changes. IMPRESSION: No acute fracture or traumatic malalignment in the cervical spine. Reviewed, dictated and finalized at location K.
--- NOTE | 2024-02-16 19:56 | ECG_ITS ---
Measurements Intervals [place] Rate: 70 P: 3 MI: 127 QRS: 26 QRSD: 80 T: 22 QT: 397 QTc: 430 Interpretive Statements SINUS RHYTHM EARLY PRECORDIAL R/S TRANSITION NONSPECIFIC T-WAVE ABNORMALITY- ANT/INF LEADS BORDERLINE ECG BASELINE ARTIFACT- I, II, AVR, AVL, AVF, V1-V2 COMPARED TO ECG 06/16/2023 01:17:55 NO SIGNIFICANT CHANGES Electronically Signed On 02-17-2024 6:25:24 CDT by Haider Jones D.O.
--- NOTE | 2024-02-16 20:07 | ED.GENADULT ---
HPI - General Adult General Chief complaint: Neuro Symptoms/Deficit Stated complaint: dizzy,h/a,visual problems Time Seen by Provider: 02/16/24 19:50 History of Present Illness HPI narrative: Patient 48-year-old female who presents emergency department with chief complaint of dizziness off-balance nausea head and neck pain. Patient reports that she started having pain couple days ago and today she noticed that she had double vision that is monocular double vision and reports he has some a photophobia and blurred vision patient states she feels as though she is about to have a seizure reports he takes Keppra and is followed by neurology at [facility] she states she has seen her neurologist he wants to do a video EEG study on her patient states that she had pain today and felt strange decided to come to our ER patient reports she has been compliant with her Keppra Related Data Home Medications Medication Instructions Recorded Confirmed albuterol sulfate 90 mcg/actuation 1 inh inhalation QID PRN 10/24/19 aerosol inhaler (ProAir HFA) Bronchospasm fluoxetine 40 mg capsule (Prozac) 80 mg PO DAILY 10/24/19 levetiracetam 500 mg tablet 1,000 mg PO BID 10/24/19 (Keppra) omeprazole 20 mg capsule,delayed 20 mg PO DAILY 10/24/19 release fexofenadine-pseudoephedrine ER 1 tablet PO QAM 07/18/20 180 mg-240 mg tablet,ext.release 24 hr (Zenaida-D 24 Hour) buspirone 15 mg tablet mg 05/08/21 fluoxetine 20 mg capsule mg 05/08/21 hydroxyzine HCl 50 mg tablet 100 05/08/21 05/08/21 lamotrigine 25 mg tablet 05/08/21 Allergies Allergy/AdvReac Type Severity Reaction Status Date / Time iodine Allergy Unknown Hives Verified 06/16/23 01:23 Sulfa (Sulfonamide Allergy Unknown Hives Verified 06/16/23 01:23 Antibiotics) ziprasidone Allergy Unknown Hives Verified 06/16/23 01:23 iohexol Allergy Dyspnea / Verified 06/16/23 01:23 [From contrast - CT, X-RAY] SOB latex Allergy Unknown Verified 06/16/23 01:23 Penicillins Allergy Unknown Verified 06/16/23 01:23 Review of Systems Review of Systems: A 10 system review of systems was completed on the patient and is negative except for what is stated in the HPI. Nursing and ancillary documentation was reviewed. PMFSH Past Medical History Medical History Anemia Anxiety Asthma Bronchitis Bulging disc DDD (degenerative disc disease) Depression Depression DJD (degenerative joint disease) Endometriosis GERD (gastroesophageal reflux disease) GERD (gastroesophageal reflux disease) Hiatal hernia History of bipolar disorder HLD (hyperlipidemia) IBS (irritable bowel syndrome) Kidney stone Migraines PCOS (polycystic ovarian syndrome) Peripheral neuropathy Pneumonia PTSD (post-traumatic stress disorder) Seizures Spinal fracture Spinal stenosis Spinal stenosis Ulcer UTI (urinary tract infection) Surgical History Surgical History History of back surgery x2 No pertinent past surgical history Social History Social History Smoking packs per day: 0.5 Smoking cigarettes per day: 10.0 Smoking status: Current every day smoker Gender identity (if verbalized by the patient): Female Exam Narrative: GENERAL: Well-appearing, well-nourished, and in no acute distress. HEAD: Normocephalic, atraumatic. EYES: PERRLA and EOMI. ENT: Nares clear, no rhinorrhea or epistaxis. Mucous membranes moist. NECK: Supple. CHEST: Clear to auscultation. No respiratory distress. HEART: Regular rate and rhythm. No murmur heard. Normal peripheral pulses. ABDOMEN: Soft, nontender, nondistended, normal active bowel sounds. EXTREMITIES: Normal range of motion. No edema. SKIN: Warm, dry, no rash. NEURO: No focal deficits. Alert and oriented x3. PSYCH: Normal mood and affect. Course
[2024-02-16 20:30] LABS: Basophils Absolute Auto 0.1 K/mm3 (0.0-0.1); Basophils Percent Auto 0.7 % (0.2-1.2); Eosinophils Absolute Auto 0.3 K/mm3 (0-0.3); Eosinophils Percent Auto 3.9 % (0-4.4); Hematocrit 38.3 % (37.0-47.0); Hemoglobin 12.4 g/dL (12.0-15.0); Immature Granulocyte Absolute 0.02 K/mm3 (0.00-0.031); Immature Granulocyte Percent A 0.2 % (0-0.5); Lymphocytes Absolute Auto 2.96 K/mm3 (0.9-3.2); Lymphocytes Percent Auto 34.6 % (18.3-44.2); Mean Corpuscular HGB Conc 32.4 g/dl (32-36); Mean Corpuscular Hemoglobin 31.3 pg (26-34); Mean Corpuscular Volume 96.7 fl (80-100); Mean Platelet Volume 10.3 fl (7.4-10.4); Monocytes Absolute Auto 0.6 K/mm3 (0.1-0.6); Monocytes Percent Auto 6.7 % (2.6-8.5); Neutrophils Absolute Auto 4.6 K/mm3 (1.3-6.7); Neutrophils Percent Auto 53.9 % (45.5-73.1); Platelet Count Result 325 k/mm3 (150-375); Red Blood Count 3.96 M/mm3 (4.2-5.4); White Blood Count 8.6 K/mm3 (4.5-10.0)
[2024-02-16] MEDS: diphenhydrAMINE HCl INJ 50 MG/ML VIAL IV PUSH (20:35)
[2024-02-16] MEDS: SODIUM CHLORIDE 0.9% IV 1,000 ML 999 ML IV CONT (20:35)
[2024-02-16] MEDS: METOCLOPRAMIDE HCL INJ 10 MG/2 ML VIAL IV PUSH (20:36)
[2024-02-16 20:40] LABS: Alanine Aminotransferase 13 U/L (6-35); Albumin Level 4.3 g/dL (3.5-5.1); Alkaline Phosphatase 77 U/L (38-126); Anion Gap 7 mmol/L (8-16); Aspartate Amino Transferase 18 U/L (14-36); Bilirubin,Total 0.3 mg/dL (0.2-1.3); Blood Urea Nitrogen 8 mg/dL (7-17); Calcium 9.1 mg/dL (8.4-10.2); Carbon Dioxide 26 mmol/L (22-30); Chloride 106 mmol/L (98-107); Estimated CRCL calculation 96 ml/min; Estimated Glomerular Filt Rate > 60; Glucose 105 mg/dL (65-110); Magnesium 2.1 mg/dL (1.6-2.3); Potassium 3.5 mmol/L (3.4-5.0); Sodium 139 mmol/L (137-145)
[2024-02-16 20:41] LABS: Lactic Acid Reflex 1.1 mmol/L (0.7-2.0)
--- NOTE | 2024-02-16 20:49 | PC.NURSE ---
pt unable to give urine sample at this time. pt has ordered fluids infusing and was educated to use call light with any urge to urinate
[2024-02-16 20:56] LABS: Influenza A QL RT-PCR Negative (Negative); Influenza B QL RT-PCR Negative (Negative); RSV RNA, RT-PCR Negative (Negative); SARS-CoV-2 RNA PCR Negative (Negative)
[2024-02-16 21:11] LABS: Lithium 0.2 mmol/L (0.6-1.2)
[2024-02-16 22:38] LABS: Appearance Urine Cloudy (Clear); Bacteria Urine 4+ /hpf; Bilirubin Urine Negative (Negative); Blood Urine Negative (Negative); Color Urine Yellow (Yellow); Glucose Urine UA Negative (Negative); Hyaline Casts Urine Present /lpf; Ketones Urine Trace mg/dL (Negative); Leukocyte Esterase Ur 2+ LEU/UL (Negative); Need Manual Microscopic Reviewed; Nitrate Urine Negative (Negative); Non Pathogenic Casts 0-2; Protein Urine 1+ mg/dL (Negative); RBC Urine 0-2 /hpf (0-2); Specific Grav Ur 1.028 (1.001-1.035); Squamous Epithelial Cell Urine Many /hpf (Few); pH Urine 5.5 (5.0-9.0)
[2024-02-16 22:40] LABS: Add Urine Microscopic? YES
--- NOTE | 2024-02-16 23:06 | PM.IMHP ---
H&P: HPI History of Present Illness Date/Time: 02/16/24 23:06 Chief Complaint: visual disturbance Narrative: this is a 48-year-old female with past medical history significant for tobacco dependence, patient is in every day smoker smokes 1 pack to 1 and half packs a day, COPD/emphysema bipolar disorder, seizure disorder. patient presents to the emergency room with complaints of known in tingling of bilateral lower extremities vision disturbance, Lower back pain. Denies fevers, chills, nausea, vomiting. Preliminary workup was significant for urinalysis with numerous WBCs present. Patient has been admitted for further evaluation management and treatment. EXAMINATION: CT brain wo con DATE: 02/16/2024 20:17 INDICATION: Dizziness . TECHNIQUE: Computed tomography (CT) of the head was performed without intravenous contrast. The mA was adjusted according to patient size. Iterative reconstruction technique was employed. The dose-length product was 529.67 mGy-cm. COMPARISON: None. FINDINGS: No acute intracranial hemorrhage or extra-axial fluid collection. No hydrocephalus, mass, or herniation. No acute ischemic infarct. Unremarkable dural venous sinus attenuation. No acute osseous abnormality. Left maxillary ethmoid and frontal sinus mucosal thickening, the remaining aerated spaces are clear. IMPRESSION:? No acute intracranial process. EXAMINATION: CT cervical spine wo con DATE: 02/16/2024 20:17 INDICATION: neck pain TECHNIQUE: Computed tomography (CT) of the cervical spine was performed without intravenous contrast. Automated exposure control and iterative reconstruction technique were employed. The dose-length product was 445.00 mGy-cm. COMPARISON: CT soft tissue neck 01/14/2023. FINDINGS: Vertebral Body Alignment: Intact. Craniocervical and atlantoaxial alignment: Moderate degenerative change. Alignment intact. Osseous structures/fracture: No evidence of a lytic or blastic process in the visualized spine.? No evidence of acute fracture. Cervical soft tissues: The paraspinal soft tissues planes are maintained. Degenerative changes: No significant degenerative changes. IMPRESSION:? No acute fracture or traumatic malalignment in the cervical spine. EXAMINATION:? XR chest 1V Exam Date/Time:? 02/16/2024 20:10 CDT HISTORY: Cough WITH SHORTNESS OF BREATH X 2-3 DAYS ? Comparison:? 06/16/2023. RESULT: Lines, tubes, and devices:? None. Lungs and pleura:? Clear. Cardiomediastinal silhouette:? Stable. Other:? No acute osseous or upper abdominal finding. ? IMPRESSION: No acute cardiopulmonary process. [facility] Past Medical History Medical History (Updated 02/17/24 @ 02:24 by Ruben Aviles MD) Anemia Anxiety Asthma Bronchitis Bulging disc DDD (degenerative disc disease) Depression Depression DJD (degenerative joint disease) Endometriosis GERD (gastroesophageal reflux disease) GERD (gastroesophageal reflux disease) Hiatal hernia History of bipolar disorder HLD (hyperlipidemia) IBS (irritable bowel syndrome) Kidney stone Migraines PCOS (polycystic ovarian syndrome) Peripheral neuropathy Pneumonia PTSD (post-traumatic stress disorder) Seizures Spinal fracture Spinal stenosis Spinal stenosis Ulcer UTI (urinary tract infection) Surgical History Surgical History History of back surgery x2 No pertinent past surgical history Family History Family History (Updated 02/17/24 @ 02:08 by Negrita Ca RN) Grandparent Acute myocardial infarction Diabetes mellitus Hypertension Sibling No problems noted. Father Cancer Diabetes mellitus Hypertension Mother Cancer Social History Social History Smoking packs per day: 1.5 Smoking cigarettes per day: 30.0 Years smoked: 25 Smoking pack-years: 37.50 Smoking status
[2024-02-17 00:44] VITALS: PULSE 76; RESP 16; O2SAT 96
[2024-02-17] MEDS: SODIUM CHLORIDE 0.9% IV 1,000 ML 125 ML IV CONT (01:31)
--- NOTE | 2024-02-17 01:38 | PC.NURSE ---
Pt resting comfortably at time of transfer. Pt not in a gown, would prefer to remain in her personal clothes at this time. No distress noted.
[2024-02-17 02:08] VITALS: BMI 37.2
[2024-02-17 04:00] VITALS: PULSE 74
[2024-02-17 04:13] VITALS: BP 134/85; PULSE 73; RESP 18; TEMP 36.9; O2SAT 97
[2024-02-17] MEDS: FLUTICASONE/SALMETEROL 115-21 MCG INHALER 1 PUFF 2 PUFF INHALATION (07:38)
[2024-02-17 07:39] VITALS: PULSE 79; O2SAT 97
[2024-02-17 08:00] VITALS: PULSE 78
[2024-02-17] MEDS: levETIRAcetam 500 MG TABLET 1000 MG PO (09:40)
[2024-02-17] MEDS: busPIRone HCL 5 MG TABLET 15 MG PO (09:41)
[2024-02-17] MEDS: FLUoxetine HCL 20 MG CAPSULE 40 MG PO (09:41)
[2024-02-17] MEDS: DICYCLOMINE HCL 10 MG CAPSULE 20 MG PO ×2 (09:41→11:14)
[2024-02-17] MEDS: ONDANSETRON INJ 4 MG/2 ML VIAL IV PUSH (09:53)
[2024-02-17] MEDS: IBUPROFEN 400 MG TABLET 800 MG PO (11:15)
[2024-02-17] MEDS: diphenhydrAMINE HCl CAP 25 MG CAPSULE PO (11:18)
[2024-02-17 12:00] VITALS: PULSE 65
--- NOTE | 2024-02-17 12:42 | PM.DS ---
DS: Admitting Diagnosis Discharge Date 02/17/2024 Admitting Diagnosis Visual disturbance/dizziness/UTI DS: Discharge Diagnosis Discharge Diagnosis (1) UTI (urinary tract infection): Code(s): N39.0 - Urinary tract infection, site not specified Status: Acute Assessment and Plan: STARTED ON ROCEPHIN Switched to PO Levaquin to cover UTI and sinusitis Allergic to PCN (2) Visual disturbance: Code(s): H53.9 - Unspecified visual disturbance Status: Acute Assessment and Plan: MRI OF THE BRAIN (3) GERD (gastroesophageal reflux disease): Code(s): K21.9 - Gastro-esophageal reflux disease without esophagitis Status: Acute Assessment and Plan: PPI (4) Spinal stenosis: Code(s): M48.00 - Spinal stenosis, site unspecified Status: Acute Assessment and Plan: TYLENOL P.R.N. (5) Seizures: Code(s): R56.9 - Unspecified convulsions Status: Acute Assessment and Plan: CONTINUE HOME MEDS Plan Disposition: Patient discharged to home will need to follow-up with Dr. Laith BENITEZ since she missed her 01/13 appointment for lithium level. Patient will also need to keep her appointment at [facility] March. Recommended immediate follow-up with PCP and possibly start physical therapy O/P for back pain. DS: Summary Hospital Course Reason for hospitalization: Visual disturbance/dizziness/UTI Hospital Course: Medical Record Chief Complaint: ?visual disturbance Narrative: ?this is a 48-year-old female with past medical history significant for tobacco dependence, patient is in every day smoker smokes 1 pack to 1 and half packs a day, COPD/emphysema bipolar disorder, seizure disorder. patient presents to the emergency room with complaints of known in tingling of bilateral lower extremities vision disturbance,? Lower back pain.? Denies fevers, chills, nausea, vomiting.? Preliminary workup was significant for? urinalysis with numerous WBCs present.? Patient has been admitted for further evaluation management and treatment. 02/16: Discharged Patient lithium levels low at 0.2 reports taking lower dose then she is suppose to. I spoke with purnima where patient see's Dr. Ozuna for medication verification. Patient currently taking 450mg is suppose to be on 600mg ER HS will increase and provide prescription. Patient will need to follow-up with dr. Habib ELI missed last appointment on 01/13. Patient reported complaint with her Keppra will resume and send in 1-month prescrition will have follow-up with [facility] in march. Patient states tingling feels as though she is going to have seizure or she is hypoglycemic, no reported witnessed seizures and BS was 105. Patient also reported chronic back pain taking ibuprofen for pain recommended follow-up with PCP and O/P physical therapy. UA was positive for leukocytes and 4+ bacteria patient started on Levofloxacin for UTI and to cover for sinusitis noted on MRI. Patient CT/MRI showed no acute findings or evidence of stroke. Patient was discharged to home. Status at Discharge Functional status at discharge: independent ambulation Overall status at discharge: patient is progressing back to baseline Time Spent with Patient Time attestation: Total time spent providing and/or coordinating discharge services: Time spent: Greater than 30 minutes Exam Const: General: comfortable, no acute distress, well developed, alert, awake and average body habitus Orientation/consciousness: patient oriented x3 HENMT: Head: normal to inspection, normocephalic and atraumatic Ears: hearing grossly normal bilaterally Face/Nose/Sinus: normal facial exam Face and sinus: normal facial exam Eyes: General: appearance normal, both eyes and all related structures Pupils: Equal, round and reactive pupils present EOM: EOMs intact bilaterally Neck: Neck: full ROM, no lymphadenopathy and no JVD Thyroid: thyroid normal Ly
== END 2024-02-17 13:50 | disposition home or self-care (01) ==
LOC: ANHED 23:44 → ANH3MED 02-17 00:49
PROVIDERS: Admitting Provider Internal Medicine; Emergency Provider Emergency Medicine; PCP Emergency Medicine; Visit Provider Family Medicine
DX: N39.0 Urinary tract infection, site not specified (principal); R42 Dizziness and giddiness; H53.8 Other visual disturbances; M48.00 Spinal stenosis, site unspecified; K21.9 Gastro-esophageal reflux disease without esophagitis; G40.909 Epilepsy, unspecified, not intractable, without status epilepticus; Z20.822 Contact with and (suspected) exposure to COVID-19; D64.9 Anemia, unspecified; J45.909 Unspecified asthma, uncomplicated; R94.31 Abnormal electrocardiogram [ECG] [EKG]; E78.5 Hyperlipidemia, unspecified; F41.9 Anxiety disorder, unspecified; F31.9 Bipolar disorder, unspecified; F43.10 Post-traumatic stress disorder, unspecified; F17.210 Nicotine dependence, cigarettes, uncomplicated; Z79.51 Long term (current) use of inhaled steroids; Z79.899 Other long term (current) drug therapy
CPT/HCPCS: 36415; 70450; 70553; 71045; 72125; 80053; 80178; 81025; 83605; 83735; 85025; 87086; 87637; 93005; 94640; 96361; 96365; 96374; 96375; 99285; A9270; A9577; G0379; J0696; J1200; J2405; J2765; J7030

== ENCOUNTER 2025-09-08 17:35 | Emergency (ER) | payer OTHER, SELFPAY ==
--- NOTE | ~2025-09-08 | CT_ITS ---
EXAMINATION: CT abdomen pelvis wo con DATE: 09/08/2025 18:48 INDICATION: Right upper quadrant abdominal pain TECHNIQUE: Computed tomography (CT) of the abdomen and pelvis was performed without intravenous contrast. Automated exposure control and iterative reconstruction technique were employed. The dose-length product was 1272.51 mGy-cm. COMPARISON: 10/03/2024 FINDINGS: Mild dependent atelectasis in bilateral lower lobes. Heart size is normal. No pericardial or pleural effusion. Mild diffuse hepatic steatosis with focal sparing along the gallbladder fossa. Or focal fat at the ligamentum teres. Gallbladder, spleen, pancreas, bilateral adrenal glands and kidneys are normal. Tiny fat-containing umbilical hernia. Bowels including the appendix are normal. Bladder, anteverted retroflexed uterus and right adnexa are unremarkable. 5.3 x 2.9 cm left adnexal cyst. No free intraperitoneal gas or fluid. No pathologically enlarged abdominal or pelvic lymphadenopathy. Mild lumbar and lower thoracic spondylosis. IMPRESSION: 1. No acute intra-abdominal/pelvic process. Reviewed, dictated and finalized at location A.
[2025-09-08 17:42] VITALS: BP 113/81; PULSE 89; RESP 15; TEMP 36.6; O2SAT 97
[2025-09-08 18:06] LABS: Hematocrit 35.4 % (37.0-47.0); Hemoglobin 11.9 g/dL (12.0-15.0); Immature Granulocyte Percent A 0.4 % (0-0.5); Lymphocytes Absolute Auto 2.28 K/mm3 (0.9-3.2); Mean Corpuscular HGB Conc 33.6 g/dl (32-36); Mean Corpuscular Hemoglobin 31.5 pg (26-34); Mean Corpuscular Volume 93.7 fl (80-100); Nucleated Red Blood Cells Absolute Auto 0.000 K/mm3 (0.0-0.012); Nucleated Red Blood Cells Perc 0.0 % (0.0-0.2); Platelet Count Result 294 k/mm3 (150-375); Red Blood Count 3.78 M/mm3 (4.2-5.4); White Blood Count 9.1 K/mm3 (4.5-10.0)
--- NOTE | 2025-09-08 18:09 | PC.NURSE ---
Pt. in bathroom attempting to provide urine sample.
[2025-09-08 18:25] LABS: Alanine Aminotransferase 21 U/L (6-35); Albumin Level 3.7 g/dL (3.5-5.1); Alkaline Phosphatase 107 U/L (38-126); Anion Gap 6 mmol/L (4-12); Aspartate Amino Transferase 22 U/L (14-36); Bilirubin,Total 0.3 mg/dL (0.2-1.3); Blood Urea Nitrogen 8 mg/dL (7-17); Calcium 8.7 mg/dL (8.4-10.2); Carbon Dioxide 21 mmol/L (22-30); Chloride 108 mmol/L (98-107); Estimated CRCL calculation 79 ml/min; Estimated Glomerular Filt Rate > 60; Glucose 105 mg/dL (65-110); Lipase 56 U/L (23-300); Potassium 3.5 mmol/L (3.4-5.0); Sodium 135 mmol/L (137-145); Total Protein 7.1 g/dL (6.3-8.2)
--- NOTE | 2025-09-08 18:51 | ED.GENADULT ---
HPI - General Adult General Chief complaint: Abdominal Pain Stated complaint: right rib to pelvis pain x a few days Time Seen by Provider: 09/08/25 17:49 History of Present Illness HPI narrative: This is a 49-year-old female with history of chronic right-sided abdominal pain presenting for right-sided abdominal pain. Symptoms started 3 days ago. They started in the right upper quadrant and now she is having pain wrapping around the right side to her back and down to her lower abdomen. She also is describing burning pain around her belly button. Patient says that she has had this happen multiple times in past has been told she has a ?sluggish gallbladder.Patient describes nausea but no vomiting. Last bowel movement was earlier today and was loose. Patient denies fevers chest pain difficulty breathing. She has taken Tylenol and naproxen with mild relief. Related Data Home Medications ?Medication ?Instructions ?Recorded ?Confirmed ?Last Taken ?Type albuterol sulfate 90 mcg/actuation 1 inh inhalation QID PRN 10/24/19 02/17/24 07/18/20 History aerosol inhaler (ProAir HFA) Bronchospasm omeprazole 20 mg capsule,delayed 40 mg PO DAILY 10/24/19 02/17/24 07/18/20 History release buspirone 15 mg tablet 15 mg PO BID 05/08/21 02/17/24 Unknown History fluoxetine 20 mg capsule 40 mg PO DAILY 05/08/21 02/17/24 Unknown History budesonide-formoterol HFA 160 2 puff inhalation BID 02/17/24 02/17/24 Unknown History mcg-4.5 mcg/actuation aerosol inhaler (Symbicort) dicyclomine 20 mg tablet 20 mg PO [facility] 02/17/24 02/17/24 Unknown History diphenhydramine HCl 25 mg capsule 25 mg PO HS PRN Allergy Symptoms 02/17/24 02/17/24 Unknown History (Benadryl) lithium carbonate 450 mg 450 mg PO DAILY 02/17/24 02/17/24 Unknown History tablet,extended release prazosin 1 mg capsule 1 mg PO HS 02/17/24 02/17/24 Unknown History Allergies Allergy/AdvReac Type Severity Reaction Status Date / Time iodine Allergy Unknown Hives Verified 10/03/24 09:50 Sulfa (Sulfonamide Allergy Unknown Hives Verified 10/03/24 09:50 Antibiotics) ziprasidone Allergy Unknown Hives Verified 10/03/24 09:50 iohexol (From contrast - CT, Allergy Dyspnea / Verified 10/03/24 09:50 X-RAY) SOB latex Allergy Unknown Verified 10/03/24 09:50 Penicillins Allergy Unknown Verified 10/03/24 09:50 [facility] Past Medical History Medical History Anemia Anxiety Asthma Bronchitis Bulging disc DDD (degenerative disc disease) Depression DJD (degenerative joint disease) Endometriosis GERD (gastroesophageal reflux disease) Hiatal hernia History of bipolar disorder HLD (hyperlipidemia) IBS (irritable bowel syndrome) Kidney stone Migraines PCOS (polycystic ovarian syndrome) Peripheral neuropathy Pneumonia PTSD (post-traumatic stress disorder) Seizures Spinal fracture Spinal stenosis Ulcer UTI (urinary tract infection) Surgical History Surgical History H/O laparoscopy x2 History of back surgery x2 Family History Family History (Updated 02/17/24 @ 02:08 by Negrita Ca RN) Grandparent Acute myocardial infarction Diabetes mellitus Hypertension Sibling No problems noted. Father Cancer Diabetes mellitus Hypertension Mother Cancer Social History Social History Smoking packs per day: 1.5 Smoking cigarettes per day: 30.0 Years smoked: 25 Smoking pack-years: 37.50 Smoking status: Current every day smoker Tobacco type: cigarettes Second hand tobacco smoke exposure: Yes Alcohol intake: never Substance use: never Do You Feel Safe in your Home?: Yes Lack of Transportation: YES Lack of Food: Often True Current Housing: I Have Housing Concerned About Future Housing: No Difficulty Paying Gas/Electric Bills: No Difficulty Paying for Meds: No Currently Unemployed: No Education: High School Diploma/GED Difficulty w/ Childcare or Family Care: No Gender identity (if verbalized by the patient): Female Spiritual care concerns: No Exam Narrative: APPEARANCE: No apparent distress. Head: atraumatic. EYES: EOMI, NOSE: Atraumatic NECK: Trachea midline RESPIRATORY: No increased rate of breathing clear to auscultation CARDIOVASCULAR: RRR, no peripheral edema ABDOMINAL: Obese, tenderness in upper quadrant guarding rebound MUSCULOSKELETAl: No obvious deformities NEURO: Alert. Moving 4/4 extremities SKIN:: Warm, dry. Normal color PSYCHIATRIC: Normal affect Course Vital Signs Vital signs: Vital Signs Temperature 98 F 09/08/25 17:42 Pulse Rate 89 09/08/25 17:42 Respiratory Rate 15 09/08/25 17:42 Blood Pressure 113/81 09/08/25 17:42 Pulse Oximetry 97 09/08/25 17:42 Oxygen Delivery Room Air 09/08/25 17:42 Temperature 98 F 09/08/25 17:42 Pulse Rate 89 09/08/25 17:42 Respiratory Rate 15 09/08/25 17:42 Blood Pressure 113/81 09/08/25 17:42 Pulse Oximetry 97 09/08/25 17:42 Oxygen Delivery Room Air 09/08/25 17:42 Medical Decision Making MDM Narrative Medical decision making narrative: -Course: 49-year-old female history of chronic right-sided abdominal pain presenting with right-sided abdominal pain. Vital signs are stable. Laboratory studies within normal limits. CT abdomen pelvis did not show any acute intra-abdominal process. Patient was given pain control with improvement. On re-evaluation patient says she is hungry would like to go home so she drink. She would like a referral to a general surgeon as well as a prescription for antiemetics which was provided. I stressed that we did not have an etiology of her pain at this time so that she has to get worse she should return to the ED and she has voiced her understanding. -DDX includes but is not limited to: Biliary disease, colitis, constipation, gas pains, appendicitis, gastritis, pancreatitis Vital Signs Vital Signs: Vital Signs Temperature 98 F 09/08/25 17:42 Pulse Rate 89 09/08/25 17:42 Respiratory Rate 15 09/08/25 17:42 Blood Pressure 113/81 09/08/25 17:42 Pulse Oximetry 97 09/08/25 17:42 Oxygen Delivery Room Air 09/08/25 17:42 Temperature 98 F 09/08/25 17:42 Pulse Rate 89 09/08/25 17:42 Respiratory Rate 15 09/08/25 17:42 Blood Pressure 113/81 09/08/25 17:42 Pulse Oximetry 97 09/08/25 17:42 Oxygen Delivery Room Air 09/08/25 17:42 Lab Data 09/08/25 18:00 09/08/25 18:00 Labs: Lab Results 09/08/25 Range/Units 18:00 WBC 9.1 (4.5-10.0) K/mm3 RBC 3.78 L (4.2-5.4) M/mm3 Hgb 11.9 L (12.0-15.0) g/dL Hct 35.4 L (37.0-47.0) % MCV 93.7 (80-100) fl MCH 31.5 (26-34) pg MCHC 33.6 (32-36) g/dl RDW 13.9 (11.5-14.5) % Plt Count 294 (150-375) k/mm3 MPV 10.0 (7.4-10.4) fl Immature Gran % (Auto) 0.4 (0-0.5) % Neut % (Auto) 62.6 (45.5-73.1) % Lymph % (Auto) 25.0 (18.3-44.2) % Eddy % (Auto) 5.0 (2.6-8.5) % Eos % (Auto) 6.3 H (0-4.4) % Baso % (Auto) 0.7 (0.2-1.2) % Lymph # (Auto) 2.28 (0.9-3.2) K/mm3 Eddy # (Auto) 0.5 (0.1-0.6) K/mm3 Eos # (Auto) 0.6 H (0-0.3) K/mm3 Baso # (Auto) 0.1 (0.0-0.1) K/mm3 Abs Immat Gran (auto) 0.04 H (0.00-0.031) K/mm3 Absolute Neuts (auto) 5.7 (1.3-6.7) K/mm3 Absolute Nucleated RBC 0.000 (0.0-0.012) K/mm3 Nucleated RBC % 0.0 (0.0-0.2) % Sodium 135 L (137-145) mmol/L Potassium 3.5 (3.4-5.0) mmol/L Chloride 108 H (98-107) mmol/L Carbon Dioxide 21 L (22-30) mmol/L Anion Gap 6 (4-12) mmol/L BUN 8 (7-17) mg/dL Creatinine 0.90 (0.7-1.0) mg/dL Estim Creat Clear Calc 79 ml/min Estimated GFR > 60 (59 - ) Glucose 105 (65-110) mg/dL Calcium 8.7 (8.4-10.2) mg/dL Total Bilirubin 0.3 (0.2-1.3) mg/dL AST 22 (14-36) U/L ALT 21 (6-35) U/L Alkaline Phosphatase 107 (38-126) U/L Total Protein 7.1 (6.3-8.2) g/dL Albumin 3.7 (3.5-5.1) g/dL Lipase 56 (23-300) U/L Discharge Plan Discharge Clinical Impression: Abdominal pain Patient Disposition: Home Condition: Stable Instructions: Antibiotic Form, Abdominal Pain (ED) Patient Language: Romanian Prescriptions: New metoclopramide HCl [Reglan] 10 mg tablet 10 mg PO Q6H PRN (Reason: nausea and vomiting) Qty: 30 0RF No Action albuterol sulfate [ProAir HFA] 90 mcg/actuation Hfa Aerosol Inhaler 1 inh INHALATION QID PRN (Reason: Bronchospasm) omeprazole 20 mg Capsule,Delayed Release(Dr/Ec) 40 mg PO DAILY ibuprofen 800 mg tablet 800 mg PO TID PRN (Reason: pain) Qty: 20 0RF methocarbamol 1,000 mg tablet 1,000 mg PO HS Qty: 10 0RF fluoxetine 20 mg capsule 40 mg PO DAILY buspirone 15 mg tablet 15 mg PO BID prazosin 1 mg capsule 1 mg PO HS lithium carbonate 450 mg tablet extended release 450 mg PO DAILY dicyclomine 20 mg tablet 20 mg PO [facility]HS diphenhydramine HCl [Benadryl] 25 mg Capsule 25 mg PO HS PRN (Reason: Allergy Symptoms) budesonide-formoterol [Symbicort] 160-4.5 mcg/actuation HFA aerosol inhaler 2 puff INHALATION BID lithium carbonate 300 mg Capsule 600 mg PO HS Qty: 60 0RF levofloxacin 750 mg tablet 750 mg PO DAILY Qty: 5 0RF levetiracetam [Keppra] 500 mg Tablet 1,000 mg PO BID Qty: 120 0RF Follow-up/Referrals: UNKNOWN,DOCTOR [Primary Care Provider]
[2025-09-08] MEDS: LACTATED RINGERS 2,000 ML 999 ML IV CONT (18:52)
[2025-09-08] MEDS: HYDROmorphone HCL INJ (*CRX) 1 MG/ML SYR 0.5 MG IV PUSH (19:23)
[2025-09-08 20:29] LABS: Add Urine Microscopic? YES; Appearance Urine Clear (Clear); Glucose Urine UA Negative (Negative); Leukocyte Esterase Ur 2+ LEU/UL (Negative); Need Manual Microscopic Reviewed; Nitrate Urine Negative (Negative); Non Pathogenic Casts 0-2; Specific Grav Ur 1.007 (1.001-1.035)
[2025-09-08 20:45] LABS: BEDSIDEPREGUCG Negative (Negative)
== END 2025-09-08 21:00 | disposition home or self-care (01) ==
PROVIDERS: Emergency Provider Emergency Medicine
DX: R10.31 Right lower quadrant pain (principal); J45.909 Unspecified asthma, uncomplicated; E78.5 Hyperlipidemia, unspecified; E28.2 Polycystic ovarian syndrome; N80.9 Endometriosis, unspecified; K44.9 Diaphragmatic hernia without obstruction or gangrene; K21.9 Gastro-esophageal reflux disease without esophagitis; K58.9 Irritable bowel syndrome, unspecified; G62.9 Polyneuropathy, unspecified; F43.10 Post-traumatic stress disorder, unspecified; F41.9 Anxiety disorder, unspecified; F32.A Depression, unspecified; F17.210 Nicotine dependence, cigarettes, uncomplicated; Z87.01 Personal history of pneumonia (recurrent); Z87.440 Personal history of urinary (tract) infections; Z79.899 Other long term (current) drug therapy
CPT/HCPCS: 36415; 74176; 80053; 81001; 81025; 83690; 85025; 87086; 96361; 96374; 99284; J1171; J7120

== ENCOUNTER 2025-09-13 00:49 | Emergency (ER) | payer OTHER, SELFPAY ==
--- NOTE | ~2025-09-13 | XR_ITS ---
Examination: XR chest 2V Clinical History: short of breath Comparison: 10/03/2024 Technique: PA and Lateral Findings: Cardiomediastinal silhouette normal size and configuration. Lungs clear. No acute bony abnormality. IMPRESSION: 1. No acute cardiopulmonary findings. Reviewed, dictated and finalized at location R.
--- NOTE | ~2025-09-13 | CT_ITS ---
CT ABDOMEN AND PELVIS WITHOUT CONTRAST Clinical History: RUQ and RLQ worsening pain, pt requests repeat CT Comparison: CT 5 days prior Technique: Unenhanced axial images lung bases to symphysis pubis Coronal, sagittal reformats CT images acquired with automatic exposure control for dose reduction DLP: 1330 mGy-cm Findings: Without intravenous contrast, sensitivity for detecting visceral parenchymal abnormalities decreased. Lung bases: Clear. Visualized heart and pericardium: Unremarkable. Liver: Enlarged. Gallbladder: Unremarkable. Spleen: Unremarkable. Pancreas: Unremarkable. Adrenal glands: Unremarkable. Kidneys: Right kidney- No hydronephrosis. No renal stones. Left kidney- No hydronephrosis. No renal stones. Distal esophagus/stomach: Unremarkable. Small bowel loops: Normal caliber and wall thickness. Colon: Normal caliber and wall thickness. Normal RLQ appendix. Nodes: No enlarged nodes. Peritoneum: No ascites. No free intraperitoneal air. Urinary bladder: Unremarkable. Uterus: Unremarkable. Adnexa: No masses. Bones: No acute bony abnormality. Soft tissues: Unremarkable. Unopacified abdominal aorta: No aneurysmal dilatation. IMPRESSION: 1. No acute findings. Reviewed, dictated and finalized at location R. IMPRESSION: 1. No acute findings.
[2025-09-13 00:50] VITALS: BP 147/84; PULSE 87; RESP 18; TEMP 37.1; O2SAT 94
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
--- NOTE | 2025-09-13 00:58 | ECG_ITS ---
Test Date: 2025-09-13 01:04:51 Measurements Intervals [place] Rate: 74 P: 53 VT: 151 QRS: 10 QRSD: 81 T: 29 QT: 383 QTc: 426 Interpretive Statements SINUS RHYTHM NONSPECIFIC ST-T WAVE ABNORMALITY- ANTERIOR LEADS BASELINE ARTIFACT- I, III, AVR, AVL, AVF BORDERLINE ECG Compared to ECG 10/03/2024 10:40:37 NO SIGNIFICANT CHANGE Electronically Signed On 09-13-2025 06:19:27 CDT by Haider Jones D.O.
[2025-09-13 01:19] LABS: Hematocrit 35.3 % (37.0-47.0); Hemoglobin 11.8 g/dL (12.0-15.0); Immature Granulocyte Percent A 0.5 % (0-0.5); Lymphocytes Absolute Auto 2.98 K/mm3 (0.9-3.2); Mean Corpuscular HGB Conc 33.4 g/dl (32-36); Mean Corpuscular Hemoglobin 31.3 pg (26-34); Mean Corpuscular Volume 93.6 fl (80-100); Nucleated Red Blood Cells Absolute Auto 0.000 K/mm3 (0.0-0.012); Nucleated Red Blood Cells Perc 0.0 % (0.0-0.2); Platelet Count Result 314 k/mm3 (150-375); Red Blood Count 3.77 M/mm3 (4.2-5.4); White Blood Count 10.5 K/mm3 (4.5-10.0)
[2025-09-13 01:31] LABS: Alanine Aminotransferase 27 U/L (6-35); Albumin Level 3.8 g/dL (3.5-5.1); Alkaline Phosphatase 112 U/L (38-126); Anion Gap 7 mmol/L (4-12); Aspartate Amino Transferase 26 U/L (14-36); Bilirubin,Total 0.2 mg/dL (0.2-1.3); Blood Urea Nitrogen 7 mg/dL (7-17); Calcium 8.9 mg/dL (8.4-10.2); Carbon Dioxide 24 mmol/L (22-30); Chloride 106 mmol/L (98-107); Estimated Glomerular Filt Rate > 60; Glucose 105 mg/dL (65-110); Lipase 60 U/L (23-300); Magnesium 2.0 mg/dL (1.6-2.3); Potassium 3.4 mmol/L (3.4-5.0); Sodium 137 mmol/L (137-145); Total Protein 7.3 g/dL (6.3-8.2)
[2025-09-13 02:26] LABS: BEDSIDEPREGUCG Negative (Negative)
--- NOTE | 2025-09-13 02:33 | ED_ITS ---
HPI - Abdominal Pain General Chief Complaint: Abdominal Pain <Jolynn Wall APRN - Last Filed: 09/13/25 03:04> Stated Complaint: R sided abd pain <Jolynn Wall APRN - Last Filed: 09/13/25 03:04> Time Seen by Provider: 09/13/25 01:38 <Jolynn Wall APRN - Last Filed: 09/13/25 03:04> History of Present Illness HPI narrative: Patient is a 49-year-old female presents to the ER with right upper abdominal pain, right lower abdominal pain, and abdominal distension. She reports she was here in the ER for evaluation 5 days ago. Patient reports she was told her CT scan results were negative, but her pain has increased along with the distension. She endorses a history of endometriosis, anxiety, irritable bowel syndrome, bipolar disorder and PTSD. Patient reports the pain is so bad it causes her nausea/vomiting, chills, and sweats. She describes the pain as ?pain she and stabbing. Patient reports she is unable to sleep due to the pain. She reports her last menstrual period was ?a couple of days ago. < Jolynn Wall APRN - Last Filed: 09/13/25 03:04> Related Data Home Medications: Home Medications ?Medication ?Instructions ?Recorded ?Confirmed ?Last Taken ?Type albuterol sulfate 90 mcg/actuation 1 inh inhalation QI D PRN 10/24/19 02/17/24 07/18/20 History aerosol inhaler (ProAir HFA) Bronchospasm omeprazole 20 mg capsule,delayed 40 mg PO DAILY 02/17/24 07/18/20 History release buspirone 15 mg tablet 15 mg PO BID 05/08/21 Unknown History fluoxetine 20 mg capsule 40 mg PO DAILY 05/08/21/ Unknown History budesonide-formoterol HFA 160 2 puff inhalation BID 02/17/24 Unknown History mcg-4.5 mcg/actuation aerosol inhaler (Symbicort) dicyclomine 20 mg tablet 20 mg PO [facility] 02/17/2402/16 Unknown History diphenhydramine HCl 25 mg capsule 25 mg PO HS PRN Darius rgy Symptoms 02/17/24 02/17/24 Unknown History (Benadryl) lithium carbonate 450 mg 450 mg PO DAILY 02/17/24 Unknown History tablet,extended release prazosin 1 mg capsule 1 mg PO HS 02/17/24 02/17/24 Unknown History <Jolynn Wall APRN - Last Filed: 09/13/25 03:04> Allergies/Adverse Reactions: Allergies Allergy/AdvReac Type Severity Reaction Status Date / Time iodine Allergy Unknown Hives Verified 09/13/25 00:49 Sulfa (Sulfonamide Allergy Unknown Hives Verified 09/13/25 00:49 Antibiotics) ziprasidone Allergy Unknown Hives Verified 09/13/25 00:49 iohexol (From contrast - CT, Allergy Dyspnea / Verified 09/13/25 00:49 X-RAY) SOB latex Allergy Unknown Verified 09/13/25 00:49 Penicillins Allergy Unknown Verified 09/13/25 00:49 <Jolynn Wall APRN - Last Filed: 09/13/25 03:04> Review of Systems 2 Review of Systems: All systems reviewed & are unremarkable except as noted in HPI and below <Jolynn Wall APRN - Last Filed: 09/13/25 03:04> PMFSH Past Medical History Medical History: Medical History Spinal fracture DJD (degenerative joint disease) DDD (degenerative disc disease) Bulging disc Anemia PTSD (post-traumatic stress disorder) History of bipolar disorder Seizures Peripheral neuropathy Migraines PCOS (polycystic ovarian syndrome) Endometriosis UTI (urinary tract infection) Kidney stone Hiatal hernia Ulcer IBS (irritable bowel syndrome) Pneumonia Bronchitis Asthma Anxiety Depression HLD (hyperlipidemia) GERD (gastroesophageal reflux disease) Spinal stenosis <Jolynn Wall APRN - Last Filed: 09/13/25 03:04> Surgical History Surgical History: Surgical History H/O laparoscopy x2 History of back surgery x2 <Jolynn Wall APRN - Last Filed: 09/13/25 03:04> Family History Family History: Family History Grandparent Acute myocardial infarction Diabetes mellitus Hypertension Sibling No problems noted. Father Cancer Diabetes mellitus Hypertension Mother Cancer <Jolynn Wall APRN - Last Filed: 09/13/25 03:04> Social History Social History: Social History Smoking packs per day: 1.5 Smoking cigarettes per day: 30.0 Years smoked: 25 Smoking pack-years: 37.50 Smoking status: Current every day smoker Tobacco type: cigarettes Second hand tobacco smoke exposure: Yes Alcohol intake: never Substance use: never Do You Feel Safe in your Home?: Yes Lack of Transportation: YES Lack of Food: Often True Current Housing: I Have Housing Concerned About Future Housing: No Difficulty Paying Gas/Electric Bills: No Difficulty Paying for Meds: No Currently Unemployed: No Education: High School Diploma/GED Difficulty w/ Childcare or Family Care: No Gender identity (if verbalized by the patient): Female Spiritual care concerns: No <Jolynn Wall APRN - Last Filed: 09/13/25 03:04> Exam 2 Narrative: GENERAL: Well appearing, obese, non-toxic, in mild distress due to pain. HEAD: Normocephalic, atraumatic. NECK: Supple. No adenopathy, no masses. RESPIRATORY: Airway patent, respirations nonlabored. Clear to auscultation bilaterally, no rales, rhonchi, wheezing. CARDIOVASCULAR: Regular rate and rhythm without murmurs, rubs, or gallops. Peripheral pulses 2+ and equal bilaterally. ABDOMINAL: Soft, significant tenderness RUQ and RLQ, + distended. Normoactive BS. MUSCULOSKELETAL: Moves all extremities. Strength/ROM intact without gross deformities. SKIN: Warm, dry, normal color. No rashes. NEURO: A&O X3. Speech clear. Cranial nerves II-XII intact. No ataxic movements. PSYCHIATRIC: Appropriate mood and affect. Normal interaction. <Jolynn Wall APRN - Last Filed: 09/13/25 03:04> Course [employer]ANT [employer]/PA Physician Supervision This visit was performed by both a physician and an APC. For this patient encounter, I reviewed the MEDIA CONSULTANT [employer] or PA documentation, treatment plan, and medical decision making and had [id number] time with this patient. I performed all aspects of the MDM as documented. <Isreal Bolden MD - Last Filed: 09/13/25 04:05> Vital Signs Vital signs: Vital Signs Temperature 98.7 F 09/13/25 00:50 Pulse Rate 87 09/13/25 00:50 Respiratory Rate 18 09/13/25 00:50 Blood Pressure 147/84 H 09/13/25 00:50 Pulse Oximetry 94 09/13/25 00:50 Oxygen Delivery Room Air 09/13/25 00:50 Temperature 98.7 F 09/13/25 00:50 Pulse Rate 87 09/13/25 00:50 Respiratory Rate 18 09/13/25 00:50 Blood Pressure 147/84 H 09/13/25 00:50 Pulse Oximetry 94 09/13/25 00:50 Oxygen Delivery Room Air 09/13/25 00:50 <Jolynn Wall APRN - Last Filed: 09/13/25 03:04> Vital Signs Temperature 98.7 F 09/13/25 00:50 Pulse Rate 87 09/13/25 00:50 Respiratory Rate 18 09/13/25 00:50 Blood Pressure 147/84 H 09/13/25 00:50 Pulse Oximetry 94 09/13/25 00:50 Oxygen Delivery Room Air 09/13/25 00:50 Temperature 98.7 F 09/13/25 00:50 Pulse Rate 87 09/13/25 00:50 Respiratory Rate 18 09/13/25 00:50 Blood Pressure 147/84 H 09/13/25 00:50 Pulse Oximetry 94 09/13/25 00:50 Oxygen Delivery Room Air 09/13/25 00:50 <Isreal Bolden MD - Last Filed: 09/13/25 04:05> MDM - Abdominal Pain MDM Narrative Medical decision making narrative: Patient is a 49-year-old female presents to the ER with right upper abdominal pain, right lower abdominal pain, and abdominal distension. She reports she was here in the ER for evaluation 5 days ago. Patient reports she was told her CT scan results were negative, but her pain has increased along with the distension. She endorses a history of endometriosis, anxiety, irritable bowel syndrome, bipolar disorder and PTSD. Patient reports the pain is so bad it causes her nausea/vomiting, chills, and sweats. She describes the pain as ?pain she and stabbing. Patient reports she is unable to sleep due to the pain. She reports her last menstrual period was ?a couple of days ago. Labs Ordered: CBC, CMP, UA, lipase, magnesium, COVID/flu/RSV, UDS, ethanol Imaging Ordered: CT abdomen pelvis Medications Ordered: 1 L normal saline IV bolus, morphine 4 mg IV, Zofran 4mg IV [employer] had extensive discussion with patient regarding concern for excessive radiology exposure with repeating a CT scan today after she had one 5 days ago. Patient reports I am going to probably get cancer anyway so if it's from CT scans that's fine. She reports the pain has worsened since last time she was here the she would prefer to get re-scanned. [facility] signed out to Dr. Bolden pending CT scan results. <Jolynn Wall, STEEL [employer]ER - Last Filed: 09/13/25 03:04> Patient is a 49-year-old female presents to the ER with right upper abdominal pain, right lower abdominal pain, and abdominal distension. She reports she was here in the ER for evaluation 5 days ago. Patient reports she was told her CT scan results were negative, but her pain has increased along with the distension. She endorses a history of endometriosis, anxiety, irritable bowel syndrome, bipolar disorder and PTSD. Patient reports the pain is so bad it causes her nausea/vomiting, chills, and sweats. She describes the pain as ?pain she and stabbing. Patient reports she is unable to sleep due to the pain. She reports her last menstrual period was ?a couple of days ago. Labs Ordered: CBC, CMP, UA, lipase, magnesium, COVID/flu/RSV, UDS, ethanol Imaging Ordered: CT abdomen pelvis Medications Ordered: 1 L normal saline IV bolus, morphine 4 mg IV, Zofran 4mg IV [employer] had extensive discussion with patient regarding concern for excessive radiology exposure with repeating a CT scan today after she had one 5 days ago. Patient reports I am going to probably get cancer anyway so if it's from CT scans that's fine. She reports the pain has worsened since last time she was here the she would prefer to get re-scanned. [id number] signed out to Dr. Bolden pending CT scan results. Yuan: Patient was signed out to me pending CT abdomen pelvis with IV contrast. CT was obtained and independently interpreted by me revealing no acute process. Patient was informed of these findings at bedside been instructed that she will need to follow-up with general surgery/GI regarding her abdominal pain. Provided with strict return precautions instructed return to the ED if any new or worsening symptoms develop. Discharged home in stable condition. <Isreal Bolden MD - Last Filed: 09/13/25 04:05> Differential Diagnosis Differential diagnosis: Likely abdominal pain, calculus of kidney, constipation, diverticulitis, endometriosis and gastroenteritis <Jolynn Wall APRN - Last Filed: 09/13/25 03:04> Lab Data Attestation: I reviewed the patient's lab results. <Jolynn Wall APRN - Last Filed: 09/13/25 03:04> Result diagrams: 09/13/25 01:13 09/13/25 01:13 <Jolynn Wall APRN - Last Filed: 09/13/25 03:04> Labs: Lab Results 09/13/25 09/13/25 09/13/25 Range/Units 01:13 02:21 02:25 WBC 10.5 H (4.5-10.0) K/mm3 RBC 3.77 L (4.2-5.4) M/mm3 Hgb 11.8 L (12.0-15.0) g/dL Hct 35.3 L (37.0-47.0) % MCV 93.6 (80-100) fl MCH 31.3 (26-34) pg MCHC 33.4 (32-36) g/dl RDW 14.1 (11.5-14.5) % Plt Count 314 (150-375) k/mm3 MPV 9.6 (7.4-10.4) fl Immature Gran % (Auto) 0.5 (0-0.5) % Neut % (Auto) 60.6 (45.5-73.1) % Lymph % (Auto) 28.3 (18.3-44.2) % Jackson % (Auto) 5.0 (2.6-8.5) % Eos % (Auto) 4.8 H (0-4.4) % Baso % (Auto) 0.8 (0.2-1.2) % Lymph # (Auto) 2.98 (0.9-3.2) K/mm3 Jackson # (Auto) 0.5 (0.1-0.6) K/mm3 Eos # (Auto) 0.5 H (0-0.3) K/mm3 Baso # (Auto) 0.1 (0.0-0.1) K/mm3 Abs Immat Gran (auto) 0.05 H (0.00-0.031) K/mm3 Absolute Neuts (auto) 6.4 (1.3-6.7) K/mm3 Absolute Nucleated RBC 0.000 (0.0-0.012) K/mm3 Nucleated RBC % 0.0 (0.0-0.2) % Sodium 137 (137-145) mmol/L Potassium 3.4 (3.4-5.0) mmol/L Chloride 106 (98-107) mmol/L Carbon Dioxide 24 (22-30) mmol/L Anion Gap 7 (4-12) mmol/L BUN 7 (7-17) mg/dL Creatinine 0.83 (0.7-1.0) mg/dL Estim Creat Clear Calc Not Reportable Estimated GFR > 60 (59 - ) Glucose 105 (65-110) mg/dL Calcium 8.9 (8.4-10.2) mg/dL Magnesium 2.0 (1.6-2.3) mg/dL Total Bilirubin 0.2 (0.2-1.3) mg/dL AST 26 (14-36) U/L ALT 27 (6-35) U/L Alkaline Phosphatase 112 (38-126) U/L Total Protein 7.3 (6.3-8.2) g/dL Albumin 3.8 (3.5-5.1) g/dL Lipase 60 (23-300) U/L Urine Color Yellow (Yellow) Urine Appearance Clear (Clear) Urine pH 6.0 (5.0-9.0) Ur Specific [place] 1.018 (1.001-1.035) Urine Protein Negative (Negative) mg/dL Urine Glucose (UA) Negative (Negative) mg/dL Urine Ketones Negative (Negative) mg/dL Ur Blood (Man) Negative (Negative) Urine Nitrate Negative (Negative) Urine Bilirubin Negative (Negative) Urine Urobilinogen 0.2 (<2.0) mg/dL Add Ur Microanalysis Reviewed Leukocyte Esterase Rfl 2+ H (Negative) XENA/UL Urine RBC 0-2 (0-2) /hpf Urine WBC 0-5 (0-3) /hpf Ur Squamous Epith Cells Occasional (Few) /hpf Urine Bacteria Rare /hpf Urine Casts 0-2 POC Urine HCG, Qual Negative (Negative) Urine Opiates Screen Negative (Negative) Urine Methadone Screen Negative (Negative) Ur Barbiturates Screen Negative (Negative) Ur Phencyclidine Scrn Negative (Negative) Ur Amphetamine Screen Negative (Negative) U Benzodiazepines Scrn Negative (Negative) Urine Cocaine Screen Negative (Negative) U Cannabinoids Screen Positive A (Negative) Influenza A (RT-PCR) Negative (Negative) Influenza B (RT-PCR) Negative (Negative) RSV (RT-PCR) Negative (Negative) SARS-CoV-2 RNA (RT-PCR) Negative (Negative) <Jolynn Wall, [employer] - Last Filed: 09/13/25 03:04> Lab Results 09/13/25 09/13/25 09/13/25 Range/Units 01:13 02:21 02:25 WBC 10.5 H (4.5-10.0) K/mm3 RBC 3.77 L (4.2-5.4) M/mm3 Hgb 11.8 L (12.0-15.0) g/dL Hct 35.3 L (37.0-47.0) % MCV 93.6 (80-100) fl MCH 31.3 (26-34) pg MCHC 33.4 (32-36) g/dl RDW 14.1 (11.5-14.5) % Plt Count 314 (150-375) k/mm3 MPV 9.6 (7.4-10.4) fl Immature Gran % (Auto) 0.5 (0-0.5) % Neut % (Auto) 60.6 (45.5-73.1) % Lymph % (Auto) 28.3 (18.3-44.2) % Jackson % (Auto) 5.0 (2.6-8.5) % Eos % (Auto) 4.8 H (0-4.4) % Baso % (Auto) 0.8 (0.2-1.2) % Lymph # (Auto) 2.98 (0.9-3.2) K/mm3 Jackson # (Auto) 0.5 (0.1-0.6) K/mm3 Eos # (Auto) 0.5 H (0-0.3) K/mm3 Baso # (Auto) 0.1 (0.0-0.1) K/mm3 Abs Immat Gran (auto) 0.05 H (0.00-0.031) K/mm3 Absolute Neuts (auto) 6.4 (1.3-6.7) K/mm3 Absolute Nucleated RBC 0.000 (0.0-0.012) K/mm3 Nucleated RBC % 0.0 (0.0-0.2) % Sodium 137 (137-145) mmol/L Potassium 3.4 (3.4-5.0) mmol/L Chloride 106 (98-107) mmol/L Carbon Dioxide 24 (22-30) mmol/L Anion Gap 7 (4-12) mmol/L BUN 7 (7-17) mg/dL Creatinine 0.83 (0.7-1.0) mg/dL Estim Creat Clear Calc Not Reportable Estimated GFR > 60 (59 - ) Glucose 105 (65-110) mg/dL Calcium 8.9 (8.4-10.2) mg/dL Magnesium 2.0 (1.6-2.3) mg/dL Total Bilirubin 0.2 (0.2-1.3) mg/dL AST 26 (14-36) U/L ALT 27 (6-35) U/L Alkaline Phosphatase 112 (38-126) U/L Total Protein 7.3 (6.3-8.2) g/dL Albumin 3.8 (3.5-5.1) g/dL Lipase 60 (23-300) U/L Urine Color Yellow (Yellow) Urine Appearance Clear (Clear) Urine pH 6.0 (5.0-9.0) Ur Specific [place] 1.018 (1.001-1.035) Urine Protein Negative (Negative) mg/dL Urine Glucose (UA) Negative (Negative) mg/dL Urine Ketones Negative (Negative) mg/dL Ur Blood (Man) Negative (Negative) Urine Nitrate Negative (Negative) Urine Bilirubin Negative (Negative) Urine Urobilinogen 0.2 (<2.0) mg/dL Add Ur Microanalysis Reviewed Leukocyte Esterase Rfl 2+ H (Negative) XENA/UL Urine RBC 0-2 (0-2) /hpf Urine WBC 0-5 (0-3) /hpf Ur Squamous Epith Cells Occasional (Few) /hpf Urine Bacteria Rare /hpf Urine Casts 0-2 POC Urine HCG, Qual Negative (Negative) Urine Opiates Screen Negative (Negative) Urine Methadone Screen Negative (Negative) Ur Barbiturates Screen Negative (Negative) Ur Phencyclidine Scrn Negative (Negative) Ur Amphetamine Screen Negative (Negative) U Benzodiazepines Scrn Negative (Negative) Urine Cocaine Screen Negative (Negative) U Cannabinoids Screen Positive A (Negative) Influenza A (RT-PCR) Negative (Negative) Influenza B (RT-PCR) Negative (Negative) RSV (RT-PCR) Negative (Negative) SARS-CoV-2 RNA (RT-PCR) Negative (Negative) <Isreal Bolden MD - Last Filed: 09/13/25 04:05> Discharge Plan Discharge Clinical Impression: Abdominal pain <Jolynn Wall APRN - Last Filed: 09/13/25 03:04> Patient Disposition: Home <Jolynn Wall APRN - Last Filed: 09/13/25 03:04> Condition: Improved <Jolynn Wall APRN - Last Filed: 09/13/25 03:04> Instructions: Antibiotic Form, Abdominal Pain (ED) <Jolynn Wall APRN - Last Filed: 09/13/25 03:04> Additional Instructions: Please follow-up with your family doctor within the next 3-5 days. You also prior to the GI referral instructed to call set up a follow-up appointment regarding abdominal pain. Return to ED if any new or worsening symptoms develop. <Jolynn Wall APRN - Last Filed: 09/13/25 03:04> Patient Language: Ecuadorean <Jolynn Wall APRN - Last Filed: 09/13/25 03:04> Prescriptions: No Action albuterol sulfate [ProAir HFA] 90 mcg/actuation Hfa Aerosol Inhaler 1 inh INHALATION QID PRN (Reason: Bronchospasm) omeprazole 20 mg Capsule,Delayed Release(Dr/Ec) 40 mg PO DAILY ibuprofen 800 mg tablet 800 mg PO TID PRN (Reason: pain) Qty: 20 0RF methocarbamol 1,000 mg tablet 1,000 mg PO HS Qty: 10 0RF fluoxetine 20 mg capsule 40 mg PO DAILY buspirone 15 mg tablet 15 mg PO BID prazosin 1 mg capsule 1 mg PO HS lithium carbonate 450 mg tablet extended release 450 mg PO DAILY dicyclomine 20 mg tablet 20 mg PO [facility]HS diphenhydramine HCl [Benadryl] 25 mg Capsule 25 mg PO HS PRN (Reason: Allergy Symptoms) budesonide-formoterol [Symbicort] 160-4.5 mcg/actuation HFA aerosol inhaler 2 puff INHALATION BID lithium carbonate 300 mg Capsule 600 mg PO HS Qty: 60 0RF levofloxacin 750 mg tablet 750 mg PO DAILY Qty: 5 0RF levetiracetam [Keppra] 500 mg Tablet 1,000 mg PO BID Qty: 120 0RF metoclopramide HCl [Reglan] 10 mg tablet 10 mg PO Q6H PRN (Reason: nausea and vomiting) Qty: 30 0RF <Jolynn Wall APRN - Last Filed: 09/13/25 03:04> Follow-up/Referrals: Jj Alaniz MD [Physician, Gastroenterology] - 3 Days UNKNOWN,DOCTOR [Primary Care Provider] <Jolynn Wall APRN - Last Filed: 09/13/25 03:04> Time of Disposition: 04:04 <Jolynn Wall APRN - Last Filed: 09/13/25 03:04> 04:04 <Isreal Bolden MD - Last Filed: 09/13/25 04:05>
[2025-09-13 02:36] LABS: Add Urine Microscopic? YES; Appearance Urine Clear (Clear); Glucose Urine UA Negative (Negative); Leukocyte Esterase Ur 2+ LEU/UL (Negative); Need Manual Microscopic Reviewed; Nitrate Urine Negative (Negative); Non Pathogenic Casts 0-2; Specific Grav Ur 1.018 (1.001-1.035)
[2025-09-13 03:03] LABS: Influenza A QL RT-PCR Negative (Negative); Influenza B QL RT-PCR Negative (Negative); RSV RNA, RT-PCR Negative (Negative); SARS-CoV-2 RNA PCR Negative (Negative)
[2025-09-13] MEDS: SODIUM CHLORIDE 0.9% IV 1,000 ML 999 ML IV CONT (03:04)
[2025-09-13] MEDS: ONDANSETRON INJ 4 MG/2 ML VIAL IV PUSH (03:04)
[2025-09-13] MEDS: MORPHINE SULFATE (*CRX) 4 MG/ML INJ IV PUSH (03:05)
[2025-09-13 03:14] LABS: Cannabinoid Screen Urine Positive (Negative)
[2025-09-13 04:54] VITALS: BP 145/81; PULSE 86; RESP 16; TEMP 36.9; O2SAT 99
[2025-09-13 04:55] VITALS: BP 145/81; PULSE 86; RESP 16; TEMP 36.9; O2SAT 99
== END 2025-09-13 04:59 | disposition home or self-care (01) ==
PROVIDERS: Registered Nurse; Emergency Provider Emergency Medicine
DX: R10.11 Right upper quadrant pain (principal); Z20.822 Contact with and (suspected) exposure to COVID-19; J45.909 Unspecified asthma, uncomplicated; N80.9 Endometriosis, unspecified; E28.2 Polycystic ovarian syndrome; E78.5 Hyperlipidemia, unspecified; K58.9 Irritable bowel syndrome, unspecified; K21.9 Gastro-esophageal reflux disease without esophagitis; F41.9 Anxiety disorder, unspecified; F43.10 Post-traumatic stress disorder, unspecified; F31.9 Bipolar disorder, unspecified; F17.210 Nicotine dependence, cigarettes, uncomplicated; Z87.01 Personal history of pneumonia (recurrent); Z87.442 Personal history of urinary calculi; Z79.899 Other long term (current) drug therapy; R94.31 Abnormal electrocardiogram [ECG] [EKG]
CPT/HCPCS: 36415; 71046; 74176; 80053; 80307; 81001; 81025; 83690; 83735; 85025; 87086; 87637; 93005; 96361; 96374; 96375; 99284; J2270; J2405; J7030